=== PATIENT | female | born 1945 | race Caucasian/White ===

== ENCOUNTER 2020-10-08 00:28 | Outpatient (CLI) | payer MEDICARE, SELFPAY ==
[2020-10-08 17:34] LABS: SARS-CoV-2 RNA PCR Negative
== END 2020-10-08 00:29 | disposition home or self-care (01) ==
LOC: ANHCOVIDDT 00:29
PROVIDERS: PCP Internal Medicine; Visit Provider Internal Medicine Gastroenterology
DX: Z01.812 Encounter for preprocedural laboratory examination (principal); Z20.822 Contact with and (suspected) exposure to COVID-19
CPT/HCPCS: C9803; U0003; U0005

== ENCOUNTER 2020-10-11 00:46 | Day surgery (SDC) | payer MEDICARE, SELFPAY ==
[2020-10-04 14:27] VITALS: BMI 31.0
[2020-10-11 07:13] VITALS: BP 129/93; PULSE 88; RESP 20; TEMP 36.8; O2SAT 99; BMI 29.5
[2020-10-11] MEDS: LACTATED RINGERS 1,000 ML 150 ML IV CONT (07:22)
--- NOTE | 2020-10-11 07:45 | WPDGICN ---
Assessment and Plan Assessment and plan (1) Colon polyps: Code(s): K63.5 - Polyp of colon Status: Acute Assessment and Plan: Patient reports having had colon polyps found on previous colonoscopy. Colonoscopy to be performed today and is suggested at 5 year intervals in the future. (2) Encounter for colonoscopy in patient with family history of colon cancer: Code(s): Z12.11 - Encounter for screening for malignant neoplasm of colon; Z80.0 - Family history of malignant neoplasm of digestive organs Status: Acute Assessment and Plan: Patient's sister has had colon cancer. For this reason screening colonoscopy advised now and at 5 year intervals. GI Consult Note Consult date/time: 10/11/20 07:45 HPI: Geovanna Gao is a 74 year old female Presents for screening colonoscopy. Patient states that her current weight appetite bowel movements are normal. She denies abdominal pain. She has had no bleeding. Family history is significant that her sister had colon cancer. Patient reports that she may have had colon polyps on previous colonoscopy. Review of Systems Review of Systems: All systems reviewed & are unremarkable except as noted in HPI and below PMFSH Past Medical History Medical History (Updated 10/11/20 @ 07:47 by Laz Lowe MD) Anxiety Back pain Diabetes Hypertension Neck fracture Surgical History Surgical History (Updated 04/17/20 @ 15:54 by Carola Cruz) Tubal ligation status Family History Family History (Updated 04/17/20 @ 15:55 by Carola Cruz) Mother Diabetes mellitus Hypertension Patient's mother is in good health Sibling Patient's sister is in good health Patient's brother is , Onset Age: 55 Family history of malignant neoplasm of gastrointestinal tract Family history of lung cancer Other Breast cancer Lung cancer Malignant neoplasm of prostate Social History Social History Smoking packs per day: 1 Smoking cigarettes per day: 20.0 Years smoked: 20 Smoking pack-years: 20.00 Smoking status: Former smoker Tobacco type: cigarettes Alcohol intake: never Substance use: never Substance use type: does not use Living arrangements: with family Spiritual care concerns: No Meds Home Medications and Allergies Home Medications Medication Instructions Recorded Confirmed Type hydrocodone 7.5 mg-acetaminophen 1 tablet PO Q4H PRN tablet 09/28/19 10/04/20 History 325 mg tablet lisinopril 20 See Rx Instructions .ROUTE 06/05/20 10/04/20 Rx mg-hydrochlorothiazide 12.5 mg .COMPLEX #180 tablet tablet rosuvastatin 40 mg tablet 40 mg PO DAILY #90 tablet 07/30/20 10/04/20 Rx pantoprazole 20 mg tablet,delayed See Rx Instructions .ROUTE 09/12/20 10/04/20 Rx release .COMPLEX #90 tablet sertraline 100 mg tablet 100 mg PO DAILY #90 tablet 09/12/20 10/04/20 Rx sodium,potassium,mag sulfates See Rx Instructions .ROUTE 10/04/20 Rx [Suprep Bowel Prep Kit] .COMPLEX #1 ml Allergies Allergy/AdvReac Type Severity Reaction Status Date / Time No Known Allergies Allergy Verified 10/11/20 07:11 Vital Signs Vital Signs - 24 hr 10/11/20 07:13 Temperature 98.2 F Pulse Rate 88 Respiratory Rate 20 Blood Pressure 129/93 H Pulse Oximetry 99 Exam Narrative: Exam Narrative: Physical exam reveals patient to be alert. Vital signs are stable. HEENT exam is unremarkable. Lungs are clear to auscultation and percussion. Heart is without murmur or extra sounds. Abdominal exam bowel sounds are present soft nontender with no organomegaly. Digital external rectal exam is normal.
--- NOTE | 2020-10-11 08:08 | WPDANESEPPF ---
Anes - Initial Pre Proc Eval Procedure: Operation Date: 10/11/20 08:30 Proposed Procedures p Screening Colonoscopy - Laz Lowe MD Date/Time: 10/11/20 08:08 Surgeon: Laz Lowe MD Pre Op Diagnosis: neoplasm screening, hx of colon polyp Patient Data Age: 74 Gender: F Height: 5 ft 4 in Weight: 78 kg Last Vital Signs Temp 98.2 F 10/11/20 07:13 Pulse 88 10/11/20 07:13 Resp 20 10/11/20 07:13 BP 129/93 H 10/11/20 07:13 Pulse Ox 99 10/11/20 07:13 Allergies Allergy/AdvReac Type Severity Reaction Status Date / Time No Known Allergies Allergy Verified 10/11/20 07:11 Home Medications Medication Instructions Recorded Confirmed Type hydrocodone 7.5 mg-acetaminophen 1 tablet PO Q4H PRN tablet 09/28/19 10/04/20 History 325 mg tablet lisinopril 20 See Rx Instructions .ROUTE 06/05/20 10/04/20 Rx mg-hydrochlorothiazide 12.5 mg .COMPLEX #180 tablet tablet rosuvastatin 40 mg tablet 40 mg PO DAILY #90 tablet 07/30/20 10/04/20 Rx pantoprazole 20 mg tablet,delayed See Rx Instructions .ROUTE 09/12/20 10/04/20 Rx release .COMPLEX #90 tablet sertraline 100 mg tablet 100 mg PO DAILY #90 tablet 09/12/20 10/04/20 Rx sodium,potassium,mag sulfates See Rx Instructions .ROUTE 10/04/20 Rx [Suprep Bowel Prep Kit] .COMPLEX #1 ml Patient hx anesthesia problems: none Family hx anesthesia problems: none PMFSH Past Medical History Medical History (Updated 10/11/20 @ 07:47 by Laz Lowe MD) Anxiety Back pain Diabetes Hypertension Neck fracture Surgical History Surgical History (Updated 04/17/20 @ 15:54 by Carola Cruz) Tubal ligation status Family History Family History (Updated 04/17/20 @ 15:55 by Carola Cruz) Mother Diabetes mellitus Hypertension Patient's mother is in good health Sibling Patient's sister is in good health Patient's brother is , Onset Age: 55 Family history of malignant neoplasm of gastrointestinal tract Family history of lung cancer Other Breast cancer Lung cancer Malignant neoplasm of prostate Social History Social History Smoking packs per day: 1 Smoking cigarettes per day: 20.0 Years smoked: 20 Smoking pack-years: 20.00 Smoking status: Former smoker Tobacco type: cigarettes Alcohol intake: never Substance use: never Substance use type: does not use Living arrangements: with family Spiritual care concerns: No Anes - Eval Final PreProcedure Day of Procedure 10/11/20 08:08 Patient weight: normal Heart: regular rate and rhythm Lungs: clear to auscultation Airway: Mallampati scale class II Neurological: alert and oriented Last oral intake: >/= 8 hours ASA classification: III Emergent: no Anesthetic plan: proceed Anesthesia type and monitoring: general GIVS and standard monitoring Informed Consent: The patient's anesthetic plan and its attendant risks and benefits were discussed with the patient/family/POA. Questions were solicited and answers provided to the satisfaction of the patient/family/POA.
[2020-10-11 08:38] VITALS: BP 96/61; PULSE 79; RESP 20; O2SAT 96
[2020-10-11 08:48] VITALS: BP 108/63; PULSE 79; RESP 18; O2SAT 99
[2020-10-11 08:58] VITALS: BP 115/76; PULSE 69; RESP 20; O2SAT 100
== END 2020-10-11 09:12 | disposition home or self-care (01) ==
PROVIDERS: PCP Internal Medicine; Visit Provider Internal Medicine Gastroenterology
PROC: 0DJD8ZZ Inspection of Lower Intestinal Tract, Via Natural or Artificial Opening Endoscopic (ICD-10-PCS; CPT 45378; principal; 2020-10-11 08:30)
DX: Z12.11 Encounter for screening for malignant neoplasm of colon (principal); Z86.010 Personal history of colon polyps; Z80.0 Family history of malignant neoplasm of digestive organs; K64.8 Other hemorrhoids; K57.30 Diverticulosis of large intestine without perforation or abscess without bleeding; F41.9 Anxiety disorder, unspecified; E11.9 Type 2 diabetes mellitus without complications; I10 Essential (primary) hypertension; Z87.891 Personal history of nicotine dependence
CPT/HCPCS: G0105; C9803; J2704; J7120; U0003; U0005

== ENCOUNTER 2020-12-31 09:04 | Outpatient (CLI) | payer MEDICARE, SELFPAY | END 2020-12-31 09:05 | disposition home or self-care (01) | LOC: ANHCOVIDVC 09:05 | PROVIDERS: PCP Internal Medicine | DX: Z23 Encounter for immunization (principal) | CPT/HCPCS: 0001A; 91300 ==

== ENCOUNTER 2021-01-21 09:29 | Outpatient (CLI) | payer MEDICARE, SELFPAY | END 2021-01-21 09:30 | disposition home or self-care (01) | LOC: ANHCOVIDVC 09:30 | PROVIDERS: PCP Internal Medicine | DX: Z23 Encounter for immunization (principal) | CPT/HCPCS: 0002A; 91300 ==

== ENCOUNTER 2021-03-21 08:56 | Outpatient (CLI) | payer MEDICARE, SELFPAY ==
--- NOTE | ~2021-03-21 | MM_ITS ---
EXAMINATION: MM screening jean BI w gracie HISTORY: Screening mammogram, family history of breast cancer in her mother. TECHNIQUE: Craniocaudal and mediolateral oblique 3-D tomosynthesis images were obtained and synthetic 2-D images were generated. CAD analysis was submitted and interpreted. COMPARISON: 09/30/2017, 07/26/2015, 05/19/2011 BREAST PARENCHYMAL COMPOSITION: The breasts are almost entirely fatty. FINDINGS: RIGHT BREAST: There is no evidence of suspicious mass, calcification, or architectural distortion to suggest malignancy. There has been no significant interval change. LEFT BREAST: An asymmetry is present in the middle third of the outer breast 6.7 cm from the nipple o n the craniocaudal view. IMPRESSION: 1. Left breast asymmetry. 2. Additional mammographic views and possible breast ultrasound are recommended. BI-RADS Category 0: Incomplete: Needs additional imaging evaluation. Reviewed, dictated and finalized at location A. IMPRESSION: 1. Left breast asymmetry. 2. Additional mammographic views and possible breast ultrasound are recommended . BI-RADS Category 0: Incomplete: Needs additional imaging evaluation.
== END 2021-03-21 08:57 | disposition home or self-care (01) ==
LOC: ANHIMG 08:59
PROVIDERS: PCP Internal Medicine; Visit Provider Nurse Practitioner
DX: Z12.31 Encounter for screening mammogram for malignant neoplasm of breast (principal); R92.8 Other abnormal and inconclusive findings on diagnostic imaging of breast
CPT/HCPCS: 77063; 77067

== ENCOUNTER 2021-04-18 08:25 | Emergency (ER) | payer MEDICARE, SELFPAY ==
[2021-04-18] VITALS (7 sets, daily range): BP systolic 132–155; BP diastolic 73–97; PULSE 74–89; RESP 9–19; TEMP 36.6; O2SAT 94–98
--- NOTE | ~2021-04-18 | CT_ITS ---
EXAMINATION: CT brain wo con INDICATION: Dizziness and generalized headache COMPARISON: 12/22/2014 TECHNIQUE: Standard unenhanced head CT. The dose-length product (DLP) was 529.67 mGy-cm. The mA was a djusted according to patient size. Iterative reconstruction technique was employed. FINDINGS: There is no acute intraparenchymal hemorrhage. No evidence of mass lesion. No evidence of a cute infarction. 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 There is mild periventr icular and subcortical hypodensity probably related to small vessel ischemic disease. There is mild p rominence of the sulci and ventricles related to cerebral atrophy. Intracranial calcified cerebral at herosclerosis is noted. There are no extra-axial collections. There is no mass effect or midline shif t. Changes in the globes are likely from ocular lens surgery. The visualized sinuses and mastoid air cells are well aerated. IMPRESSION: 1. No acute intracranial abnormality. 2. Age related findings. Reviewed, dictated and finalized at location B.
--- NOTE | 2021-04-18 09:08 | ECG_ITS ---
Measurements Intervals [place] Rate: 76 P: 60 CA: 139 QRS: 25 QRSD: 89 T: 49 QT: 377 QTc: 425 Interpretive Statements SINUS RHYTHM BASELINE ARTIFACT- II, III, AVF, V3-V6 NORMAL ECG Electronically Signed On 04-18-2021 9:41:06 CDT by Alexander Juares D.O.
--- NOTE | 2021-04-18 09:34 | ED.GENADULT ---
HPI - General Adult General Chief complaint: Dizziness Stated complaint: weakness, N/V Time Seen by Provider: 04/18/21 09:20 Source: patient Mode of arrival: ambulatory Limitations: no limitations History of Present Illness HPI narrative: Patient called her daughter this morning at 815 complaining of nausea and headache. She tells me her headache started last evening has gone through the night for which she took nothing. She tried to take her morning blood pressure medicines but vomited. And she has not taken her chronic pain medicine. She denies any fever, visual changes. States the headache is behind her eyes and on her temples. Related Data Home Medications Medication Instructions Recorded Confirmed amlodipine 04/18/21 04/18/21 lisinopril-hydrochlorothiazide tablet 04/18/21 Allergies Allergy/AdvReac Type Severity Reaction Status Date / Time No Known Allergies Allergy Verified 03/12/21 07:22 Review of Systems Review of Systems: All systems reviewed & are unremarkable except as noted in HPI and below PMFSH Past Medical History Medical History Anxiety Back pain Diabetes Hypertension Neck fracture Surgical History Surgical History Tubal ligation status Family History Family History Mother Diabetes mellitus Hypertension Patient's mother is in good health Sibling Patient's sister is in good health Patient's brother is , Onset Age: 55 Family history of malignant neoplasm of gastrointestinal tract Family history of lung cancer Other Breast cancer Lung cancer Malignant neoplasm of prostate Social History Social History Smoking packs per day: 1 Smoking cigarettes per day: 20.0 Years smoked: 20 Smoking pack-years: 20.00 Smoking status: Former smoker Tobacco type: cigarettes Second hand tobacco smoke exposure: Yes Alcohol intake: current Alcohol use details: glass of wine every 2 weeks. Substance use: never Substance use type: does not use Spiritual care concerns: No Exam Const: General: alert Orientation/consciousness: patient oriented x3 Other: appears in pain. HENMT: Head: normal to inspection Eyes: Conjunctivae: conjunctivae normal Pupils: Equal, round and reactive pupils present EOM: EOMs intact bilaterally Direct Ophthalmoscopy: photophobia Neck: Neck: no lymphadenopathy Resp: Effort & Inspection: normal respiratory effort Auscultation: clear to auscultation bilaterally Cardio: Rate: regular rate Rhythm: regular rhythm GI: GI Palp: Yes Soft to palpation Auscultation: normal bowel sounds : General: Yes no CVA tenderness Skin: General skin exam: normal color Neuro: General: patient oriented x3, moves all extremities and no focal motor deficits Extrem: General: normal to inspection and no clubbing, cyanosis or edema Course Course Emergency Course: IVF about 30%complete, pt states her headache may be slightly better, but still about an 8. Patient was able to drink some white soda. But is complaining that her headache is still severe. Her daughter is complaining as well that I have not been able to care her mother's headache. She has had Toradol and Vicodin. Will treat with sumatriptan and additional saline bolus. Patient is much better after her subcu dose of sumatriptan and is ready to go home. Will prescribe for home Vital Signs Vital signs: Vital Signs Temperature 36.6 C 04/18/21 08:30 Pulse Rate 89 04/18/21 08:30 Respiratory Rate 16 04/18/21 08:30 Blood Pressure 155/97 H 04/18/21 08:30 Pulse Oximetry 98 04/18/21 08:30 Temperature 36.6 C 04/18/21 08:30 Pulse Rate 74 04/18/21 11:01 Respiratory Rate 16 04/18/21 11:01 Blood Pressure 153/97 H 04/18/21 11:01 Pulse
[2021-04-18] MEDS: ONDANSETRON INJ 4 MG/2 ML VIAL (10:16)
[2021-04-18] MEDS: KETOROLAC 30 MG/ML VIAL (*BKC) IV PUSH (10:17)
[2021-04-18] MEDS: SODIUM CHLORIDE 0.9% IV 1,000 ML 999 ML IV CONT ×2 (10:18→13:51)
[2021-04-18 10:44] LABS: Basophils Absolute Auto 0.1 K/mm3 (0.0-0.1); Basophils Percent Auto 0.5 % (0.2-1.2); Eosinophils Absolute Auto 0.2 K/mm3 (0-0.3); Eosinophils Percent Auto 1.7 % (0-4.4); Hematocrit 46.8 % (37.0-47.0); Hemoglobin 14.8 g/dL (12.0-15.0); Immature Granulocyte Absolute 0.03 K/mm3 (0.00-0.031); Immature Granulocyte Percent A 0.2 % (0-0.5); Lymphocytes Absolute Auto 2.44 K/mm3 (0.9-3.2); Lymphocytes Percent Auto 20.3 % (18.3-44.2); Mean Corpuscular HGB Conc 31.6 g/dl (32-36); Mean Corpuscular Hemoglobin 31.5 pg (26-34); Mean Corpuscular Volume 99.6 fl (80-100); Mean Platelet Volume 11.8 fl (7.4-10.4); Monocytes Absolute Auto 0.8 K/mm3 (0.1-0.6); Monocytes Percent Auto 6.2 % (2.6-8.5); Neutrophils Absolute Auto 8.5 K/mm3 (1.3-6.7); Neutrophils Percent Auto 71.1 % (45.5-73.1); Platelet Count Result 248 k/mm3 (150-375); Red Cell Distribution Width 12.9 % (11.5-14.5)
[2021-04-18 10:51] LABS: Alanine Aminotransferase 20 U/L (4-35); Albumin Level 4.8 g/dL (3.5-5.1); Alkaline Phosphatase 80 U/L (38-126); Anion Gap 7 mmol/L (8-16); Aspartate Amino Transferase 35 U/L (14-36); Bilirubin,Total 0.5 mg/dL (0.2-1.3); Blood Urea Nitrogen 20 mg/dL (7-17); Calcium 11.2 mg/dL (8.4-10.2); Carbon Dioxide 32 mmol/L (22-30); Chloride 102 mmol/L (98-107); Estimated CRCL calculation 46 ml/min; Estimated Glomerular Filt Rate > 60; Glucose 125 mg/dL (65-110); Lipase 119 U/L (23-300); Potassium 3.5 mmol/L (3.4-5.0); Sodium 141 mmol/L (137-145)
[2021-04-18] MEDS: HYDROcodone/acetaminophen (*CRX) 7.5-325 MG TABLET 1 TAB PO (11:36)
[2021-04-18 12:34] LABS: Add Urine Microscopic? YES; Appearance Urine Cloudy (Clear); Bilirubin Urine Negative (Negative); Blood Urine 1+ (Negative); Color Urine Yellow (Yellow); Glucose Urine UA Negative (Negative); Ketones Urine Negative (Negative); Leukocyte Esterase Ur Negative LEU/UL (Negative); Mucus Urine Rare /lpf; Nitrate Urine Negative (Negative); Protein Urine Negative (Negative); RBC Urine 0-2 /hpf (0-2); Specific Grav Ur 1.015 (1.001-1.035); Urobilinogen Urine Negative mg/dL (<2.0); WBC Urine 0-3 /hpf
[2021-04-18] MEDS: SUMAtriptan SUCCINATE 6 MG/0.5 ML VIAL SUB-Q (13:51)
== END 2021-04-18 14:45 | disposition home or self-care (01) ==
PROVIDERS: Physician Assistant; Emergency Provider Emergency Medicine; PCP Internal Medicine
DX: G43.009 Migraine without aura, not intractable, without status migrainosus (principal); I10 Essential (primary) hypertension; E11.9 Type 2 diabetes mellitus without complications; Z87.891 Personal history of nicotine dependence
CPT/HCPCS: 36415; 70450; 80053; 81001; 83690; 85025; 93005; 96361; 96372; 96374; 96375; 99284; A9270; J1885; J2405; J3030; J7030

== ENCOUNTER 2021-04-19 08:52 | Outpatient (CLI) | payer MEDICARE, SELFPAY ==
--- NOTE | ~2021-04-19 | MMUS_ITS ---
EXAMINATION: MM diagnostic jean LT w gracie, US breast LT limited HISTORY: Follow-up left breast asymmetry TECHNIQUE: Additional 3-D tomosynthesis images of the left breast were performed and synthetic 2-D im ages were generated. CAD analysis was submitted and interpreted. High resolution left breast ultrasou nd was performed. COMPARISON: Comparison to multiple prior studies sequentially, with oldest reviewed study dated 05/19. BREAST PARENCHYMAL COMPOSITION: Breast composed of scattered areas of fibroglandular density. FINDINGS: MAMMOGRAPHIC FINDINGS: There are no suspicious masses, calcifications or architectural distortion in the left breast to sugg est malignancy. ULTRASOUND: Limited left breast ultrasound: Normal heterogeneous echotexture without focal mass. IMPRESSION: 1. No evidence for malignancy in the left breast. 2. Routine yearly screening mammogram and regular clinical breast examination are recommended. BI-RADS Category 1: Negative Reviewed, dictated and finalized at location A. IMPRESSION: 1. No evidence for malignancy in the left breast. 2. Routine yearly screening mammogram and regular clinical breast examination a re recommended. BI-RADS Category 1: Negative
== END 2021-04-19 08:53 | disposition home or self-care (01) ==
LOC: ANHIMG 08:52
PROVIDERS: PCP Internal Medicine; Visit Provider Nurse Practitioner
DX: R92.8 Other abnormal and inconclusive findings on diagnostic imaging of breast (principal)
CPT/HCPCS: 76642; 77061; 77065; G0279

== ENCOUNTER 2021-05-20 07:26 | Outpatient (CLI) | payer MEDICARE, SELFPAY ==
--- NOTE | ~2021-05-20 | DEXA_ITS ---
Bone Density Report Name: Geovanna Gao Age: 75 Sex: Female Ethnicity: White Date of : 1945 Indication: osteopenia; height loss; prior fracture; postmenopausal Referring Provider: Ellen Holcomb Study: Bone densitometry was performed. Exam Date: May 20, 2021 Accession number: [id number] Bone Density: Region BMD T-score Z-score Classification AP Spine (L1-L4) 0.820 -2.1 0.4 Osteopenia Femoral Neck (Left) 0.703 -1.3 0.8 Osteopenia Total Hip (Left) 0.835 -0.9 1.0 Normal Total Hip Bilateral Avg 0.828 -0.9 0.9 Normal Femoral Neck (Right) 0.850 0.0 2.2 Normal Total Hip (Right) 0.820 -1.0 0.9 Normal World Health Organization criteria for BMD impression classify patients as: Normal (T-score at or above -1.0), Osteopenia (T-score between -1.0 and -2.5), or Osteoporosis (T-score at or below -2.5). 10-year Fracture Risk(1): Major Osteoporotic Fracture 17% Hip Fracture 3.0% Reported Risk Factors: [place] (), Neck BMD=0.703, BMI=27.0, previous fracture (1) FRAX(R) Version 3.08. Fracture probability calculated for an untreated patient. Fracture probability may be lower if the patient has received treatment. Previous Exams: Region Exam Age BMD T-score BMD Change BMD Change Date g/cm2 vs Baseline vs Previous AP Spine(L1-L4) 05/20/2021 75 0.820 -2.1 -0.020(-2.4%)# -0.031(-3.7%)# 05/19/2011 65 0.851 -1.8 0.011(1.3%) 0.011(1.3%) 03/23/2007 61 0.840 -1.9 Total Hip(Left) 05/20/2021 75 0.835 -0.9 -0.090(-9.7%)# -0.072(-7.9%)# 05/19/2011 65 0.907 -0.3 -0.018(-2.0%) -0.018(-2.0%) 03/23/2007 61 0.925 -0.1 Total Hip(Right) 05/20/2021 75 0.820 -1.0 -0.057(-6.4%)# -0.083(-9.2%)# 05/19/2011 65 0.903 -0.3 0.026(3.0%) 0.026(3.0%) 03/23/2007 61 0.877 -0.5 *Denotes significance at 95% confidence level, LSC for AP Spine = 0.022 g/cm2, LSC for Total Hip = 0.027 g/cm2 Clinical Information Provided by Patient: Has had a low trauma fracture Has used the following medications: Vitamin D, Calcium Patient maximum height was 67 Menopause Age: 44 Drinks caffeinated beverages Onset of menses at age 11 Number of children 3 Impression: The patient has low bone mass, based on the Total Spine T-score. The patient has an estimated ten-year risk of hip fracture of 3% and an estimated ten-year risk of major fracture of 17%, based on the WHO FRAX algorithm. The patient has risk factors, including: prev
== END 2021-05-20 07:27 | disposition home or self-care (01) ==
LOC: ANHIMG 07:28
PROVIDERS: PCP Internal Medicine; Visit Provider Internal Medicine Endocrinology, Diabetes & Metabolism
DX: M85.851 Other specified disorders of bone density and structure, right thigh (principal); E21.3 Hyperparathyroidism, unspecified; E55.9 Vitamin D deficiency, unspecified; I10 Essential (primary) hypertension; M85.852 Other specified disorders of bone density and structure, left thigh
CPT/HCPCS: 77080

== ENCOUNTER 2022-05-19 12:37 | Outpatient (CLI) | payer MEDICARE, SELFPAY ==
--- NOTE | 2022-05-22 12:49 | WPDHOLTEREM ---
Holter/Event Monitor Holter/Event Monitor Date of procedure: 05/19/22 Holter/Event Procedure: 48 Hr Holter Monitor Indications: Palpitations Conclusion: 1. 48 hour holter monitor on 05/19/22. 2. Predominant rhythm is sinus rhythm. HR range 52-115 bpm; average HR 79 bpm. 3. There are 242 premature supraventricular complexes and 25 supraventricular couplets. There are 7 episodes of atrial tachycardia, fastest at 185 bpm and longest lasted 14 beats. 4. There are 672 premature ventricular complexes and 2 ventricular couplets. No ventricular tachycardia. 5. No sinoatrial or atrioventricular blocks. No significant pauses greater than 2 seconds. 6. Patient reports dizziness which demonstrate sinus rhythm, HR range 88-95 bpm with a ventricular couplet.
== END 2022-05-19 12:38 | disposition home or self-care (01) ==
PROVIDERS: PCP Internal Medicine; Visit Provider Internal Medicine
DX: R00.2 Palpitations (principal); R94.39 Abnormal result of other cardiovascular function study
CPT/HCPCS: 93225; 93226

== ENCOUNTER 2022-06-02 07:18 | Outpatient (CLI) | payer MEDICARE, SELFPAY ==
--- NOTE | ~2022-06-02 | MM_ITS ---
EXAMINATION: MM screening jean BI w gracie HISTORY: Screening mammogram TECHNIQUE: Craniocaudal and mediolateral oblique 3-D tomosynthesis images were obtained and synthetic 2-D images were generated. CAD analysis was submitted and interpreted. COMPARISON: 04/19/2021 diagnostic left mammogram and limited left breast ultrasound 03/21/2021, 09/26/2017 bilateral screening mammogram examinations BREAST PARENCHYMAL COMPOSITION: The breasts are almost entirely fatty. FINDINGS: There is no evidence of suspicious mass, calcification, or architectural distortion to sugg est malignancy in either breast. There has been no suspicious interval change. IMPRESSION: 1. No mammographic evidence of malignancy. 2. Recommend routine screening mammography in one year. BI-RADS Category 1: Negative Reviewed, dictated and finalized at location A.
== END 2022-06-02 07:19 | disposition home or self-care (01) ==
LOC: ANHIMG 07:20
PROVIDERS: PCP Internal Medicine; Visit Provider Internal Medicine
DX: Z12.31 Encounter for screening mammogram for malignant neoplasm of breast (principal)
CPT/HCPCS: 77063; 77067

== ENCOUNTER 2022-06-26 07:00 | Outpatient (NON) | payer MEDICARE, SELFPAY | END 2022-06-26 07:01 | disposition home or self-care (01) | PROVIDERS: PCP Internal Medicine; Visit Provider Nurse Practitioner | DX: C50.812 Malignant neoplasm of overlapping sites of left female breast (principal) | CPT/HCPCS: 88305 ==

== ENCOUNTER 2022-07-28 14:02 | Outpatient (NON) | payer MEDICARE, SELFPAY | END 2022-07-28 14:03 | disposition home or self-care (01) | LOC: ANHLAB 14:02 | PROVIDERS: PCP Internal Medicine; Visit Provider Nurse Practitioner | DX: C44.511 Basal cell carcinoma of skin of breast (principal) | CPT/HCPCS: 88305; 88331 ==

== ENCOUNTER 2022-08-13 10:13 | Outpatient (CLI) | payer MEDICARE, SELFPAY ==
--- NOTE | ~2022-08-13 | DEXA_ITS ---
Bone Density Report Name: HAVEN CHAND Age: 76 Sex: Female Ethnicity: White Date of : 1945 Indication: postmenopausal; screening for osteoporosis; height loss; Referring Provider: ASHANTI LOCKE Study: Bone densitometry was performed. Exam Date: August 13, 2022 Accession number: [id number] Bone Density: Region BMD T-score Z-score Classification AP Spine(L1-L4) 0.883 -1.5 1.1 Osteopenia Femoral Neck (Left) 0.767 -0.7 1.5 Normal Total Hip (Left) 0.864 -0.6 1.3 Normal Femoral Neck (Right) 0.825 -0.2 2.0 Normal Total Hip (Right) 0.877 -0.5 1.4 Normal Total Hip Mean 0.871 -0.6 1.4 Normal World Health Organization criteria for BMD impression classify patients as: Normal (T-score at or above -1.0), Osteopenia (T-score between -1.0 and -2.5), or Osteoporosis (T-score at or below -2.5). 10-year Fracture Risk: FRAX not reported because: Treated for osteoporosis Clinical Information Provided by Patient: Is being treated for osteoporosis Has used the following medications: Fosamax (i.e. alendronate), Vitamin D Patient maximum height was 67.5 Menopause Age: 44 Drinks caffeinated beverages Onset of menses at age 10 Number of children 3 Impression: The patient has low bone mass, based on the Total Spine T-score. Discussion: It is important to ask patients whether they are taking their medications and to encourage continued and appropriate compliance with their osteoporosis therapies to reduce fracture risk. It is also important to review their risk factors and encourage appropriate calcium and vitamin D intakes, exercise, fall prevention and other lifestyle measures. Follow-Up: Consider a repeat BMD and Vertebral Fracture Assessment (VFA) exam in 2 years or sooner if medically necessary, to reassess this patient's status. Reported by: [facility] on 08/13/2022 10:30:00 AM. Reviewed, dictated and finalized at location AJeni CANTRELL
== END 2022-08-13 10:14 | disposition home or self-care (01) ==
PROVIDERS: PCP Internal Medicine; Visit Provider Internal Medicine Endocrinology, Diabetes & Metabolism
DX: E21.3 Hyperparathyroidism, unspecified (principal); E55.9 Vitamin D deficiency, unspecified; M85.80 Other specified disorders of bone density and structure, unspecified site; M85.88 Other specified disorders of bone density and structure, other site
CPT/HCPCS: 77080

== ENCOUNTER 2024-01-22 09:14 | Outpatient (CLI) | payer MEDICARE, SELFPAY ==
--- NOTE | ~2024-01-22 | DEXA_ITS ---
Bone Density Report Name: HAVEN CHAND Age: 78 Sex: Female Ethnicity: White Date of : 1945 Indication: osteopenia; monitoring treatment; height loss; postmenopausal Referring Provider: ASHANTI LOCKE Study: Bone densitometry was performed. Exam Date: January 22, 2024 Accession number: [id number] Bone Density: Region BMD T-score Z-score Classification AP Spine(L1-L4) 0.873 -1.6 1.1 Osteopenia Femoral Neck (Left) 0.738 -1.0 1.3 Normal Total Hip (Left) 0.918 -0.2 1.8 Normal Femoral Neck (Right) 0.952 0.9 3.2 Normal Total Hip (Right) 0.929 -0.1 1.9 Normal Total Hip Mean 0.923 -0.2 1.9 Normal World Health Organization criteria for BMD impression classify patients as: Normal (T-score at or above -1.0), Osteopenia (T-score between -1.0 and -2.5), or Osteoporosis (T-score at or below -2.5). 10-year Fracture Risk: FRAX not reported because: Treated for osteoporosis Previous Exams: Region Exam Age BMD T-score BMD Change BMD Change Date g/cm2 vs Baseline vs Previous AP Spine (L1-L4) 01/22/2024 78 0.873 -1.6 0.053 (6.5%)* -0.010 (-1.2%) 08/13/2022 76 0.883 -1.5 0.064 (7.8%)* 0.064 (7.8%)* 05/20/2021 75 0.820 -2.1 Total Hip(Left) 01/22/2024 78 0.918 -0.2 0.082 (9.8%)* 0.054 (6.2%)* 08/13/2022 76 0.864 -0.6 0.029 (3.4%)* 0.029 (3.4%)* 05/20/2021 75 0.835 -0.9 Total Hip(Right) 01/22/2024 78 0.929 -0.1 0.109 (13.3%)* 0.052 (5.9%)* 08/13/2022 76 0.877 -0.5 0.057 (7.0%)* 0.057 (7.0%)* 05/20/2021 75 0.820 -1.0 *Denotes significance at 95% confidence level, LSC for AP Spine = 0.022 g/cm2, LSC for Total Hip = 0.027 g/cm2 Clinical Information Provided by Patient: Is being treated for osteoporosis Has used the following medications: Fosamax (i.e. alendronate), Vitamin D Patient maximum height was 67.5 Menopause Age: 44 Drinks caffeinated beverages Onset of menses at age 10 Number of children 3 Impression: The patient has low bone mass, based on the Total Spine T-score. No significant bone loss was observed. Discussion: PATIENT UNDER TREATMENT WITH NO SIGNIFICANT BMD LOSS SINCE LAST EXAM. In an untreated patient, BMD typically declines with age. A lack of decline or gain is usually a sign that treatment is efficacious and fracture risk is reduced. It is important to ask patients whether they are taking their medications and to encourage continued and appropriate compliance with their
== END 2024-01-22 09:15 | disposition home or self-care (01) ==
PROVIDERS: PCP Family Medicine; Visit Provider Internal Medicine Endocrinology, Diabetes & Metabolism
DX: Z78.0 Asymptomatic menopausal state (principal); M85.88 Other specified disorders of bone density and structure, other site
CPT/HCPCS: 77080

== ENCOUNTER 2024-04-21 10:51 | Outpatient (CLI) | payer MEDICARE, SELFPAY ==
--- NOTE | ~2024-04-21 | US_ITS ---
EXAMINATION: US thyroid DATE: 04/21/2024 11:24 INDICATION: Nontoxic single thyroid nodule TECHNIQUE: Multiple ultrasound images of the thyroid were obtained. COMPARISON: None. FINDINGS: The right thyroid lobe measures 4.3 x 1.1 x 1.6 cm. The left thyroid lobe measures 1.7 x 1.6 x 1.7 c m. Solid wider than tall isoechoic nodules with smooth margins and without extending foci (TI-RADS 3 , mildly suspicious , FNA if >=2.5 cm, annual followup is >=1.5 cm) measuring 1.1 cm in the inferior right thyroid lobe and 1.0 cm the mid right thyroid lobe. There is a solid wider than tall hypoechoic nodule with lobular margins and internal coarse shadowing calcifications at the inferior left thyroi d lobe (TI-RADS 5, highly suspicious , FNA if >=1.0 cm, annual followup is >0.5 cm). IMPRESSION: 1. Multinodular goiter. Recommend ultrasound-guided biopsy of the largest and highest grade 1.7 cm TI RADS 5 left thyroid nodule. Reviewed, dictated and finalized at location A. IMPRESSION: 1. Multinodular goiter. Recommend ultrasound-guided biopsy of the largest and h ighest grade 1.7 cm TI RADS 5 left thyroid nodule.
== END 2024-04-21 10:52 | disposition home or self-care (01) ==
PROVIDERS: PCP Family Medicine; Visit Provider Internal Medicine Endocrinology, Diabetes & Metabolism
DX: E04.2 Nontoxic multinodular goiter (principal)
CPT/HCPCS: 76536

== ENCOUNTER 2024-06-13 12:34 | Outpatient (CLI) | payer MEDICARE, SELFPAY ==
--- NOTE | ~2024-06-13 | US_ITS ---
EXAMINATION: US FNA w image guidance DATE: 06/13/2024 13:31 INDICATION: Left thyroid nodule. TECHNIQUE: The procedure and its benefits and risks were discussed with the patient. Risks specifically discusse d included bleeding. The patient verbalized understanding of the risks and agreed to proceed. The nec k was prepped and draped in the usual sterile manner. 1% lidocaine was used for local anesthesia. 6 passes were made with a 25G needle into the lesion under ultrasound guidance. There were no immedia te complications. FINDINGS: Grayscale ultrasound images demonstrate needles advanced into a 1.7 cm nodule in left thyroid lobe fo r biopsy. IMPRESSION: 1. Ultrasound-guided fine needle aspiration of a left thyroid nodule. Reviewed, dictated and finalized at location A.
== END 2024-06-13 12:35 | disposition home or self-care (01) ==
LOC: ANHIMG 12:37
PROVIDERS: PCP Nurse Practitioner Family; Visit Provider Internal Medicine Endocrinology, Diabetes & Metabolism
DX: E04.1 Nontoxic single thyroid nodule (principal)
CPT/HCPCS: 10005; 88172; 88173; 88305

== ENCOUNTER 2024-09-03 09:10 | Outpatient (CLI) | payer MEDICARE, SELFPAY ==
--- NOTE | ~2024-09-03 | MM_ITS ---
EXAMINATION: MM screening jean BI w gracie HISTORY: Screening mammogram, family history of breast cancer in her mother. TECHNIQUE: Craniocaudal and mediolateral oblique 3-D tomosynthesis images were obtained and synthetic 2-D images were generated. CAD analysis was submitted and interpreted. COMPARISON: 06/02/2022, 04/19/2021, 03/21/2021 BREAST PARENCHYMAL COMPOSITION:Not Dense. The breasts are almost entirely fatty FINDINGS: No suspicious mass, calcification, or architectural distortion are identified in either aldo ast to suggest malignancy. There has been no suspicious interval change. IMPRESSION: No mammographic evidence of malignancy. Recommend routine screening mammography in one year. BI-RADS Category 1: Negative Reviewed, dictated and finalized at location . GRADER
== END 2024-09-03 09:11 | disposition home or self-care (01) ==
LOC: ANHIMG 09:11
PROVIDERS: PCP Nurse Practitioner Family; Visit Provider Nurse Practitioner Family
DX: Z12.31 Encounter for screening mammogram for malignant neoplasm of breast (principal)
CPT/HCPCS: 77063; 77067

== ENCOUNTER 2025-05-30 11:03 | Outpatient (CLI) | payer MEDICARE, SELFPAY ==
--- NOTE | ~2025-05-30 | XR_ITS ---
EXAMINATION: XR shoulder LT min 2V, 05/30/2025 11:15 CDT HISTORY: M25.511 - Pain in right shoulder X 6+YRS NKI COMPARISON: No comparisons available. Findings: No acute fracture or malalignment. Moderate degenerative changes Soft tissues unremarkable. Impression: No acute fracture or malalignment. Reviewed, dictated and finalized at location A. Impression: No acute fracture or malalignment.
--- NOTE | ~2025-05-30 | XR_ITS ---
EXAMINATION: XR shoulder RT min 2V, 05/30/2025 11:15 CDT HISTORY: M25.511 - Pain in right shoulderX 6+ YRS, NKI COMPARISON: No comparisons available. Findings: No acute fracture or malalignment. Severe degenerative changes Soft tissues unremarkable. Impression: No acute fracture or malalignment. Reviewed, dictated and finalized at location A. Impression: No acute fracture or malalignment.
--- OUTSIDE RECORDS SUMMARY | 2025-05-30 11:50 | XMS_ITS | Encounter Summary ---
Author Organization [facility] Address [address] [place] [address] Care Team Providers Care Websphere Administrator Name Role Phone Vipul Weber DO Primary Care Provider Encounter Details Date Type Department Care Team (Late st Contact Info) Description 02/02/2025 Lab Requisition [facility] - DermPath Lab [address] [facility], [place] [phone] Paige Long DO [address] [facility] 3 [place] [address] Social History Tobacco Use Types Packs/Day Years Used Date Smoking Tobacco: Never Assessed Comments Unknown Sex and Gender Information Value Date Recorded Sex Assigned at Not on file Legal Sex 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 Gender Identity Not on file Sexual Orientation Not on file documented as of this encounter Plan of Treatment Not on file documented as of this encounter Procedures Procedure Name Priority Date/Time Associated Diagnosis Comments DERMATOPATHOLOGY Routine 02/02/2025 9:04 AM CDT documented in this encounter Results * DERMATOPATHOLOGY (02/02/2025 9:04 AM CDT) Case Report Dermatopathology Report Case: [id number] Authorizing Provider: Paige Long DO Collected: 02/02/2025 09:04 AM Ordering Location: [facility] - Received: 02/03/2025 07:10 AM DermPath Lab Pathologist: Keira Freedman MD Specimen: Skin, left forearm 1:18 PM CDT DERMATOPATHOLOGY LABORATORY Final Diagnosis Specimen A. 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 The specimen consists of a shave biopsy measuring 10x8x1 mm. Jar 0. 1:18 PM CDT DERMATOPATHOLOGY LABORATORY Microscopic Description Specimen A. SKIN, left forearm: The epidermis shows parakeratosis, full thickness disorderly maturation of keratinocytes, mitoses at different levels, and dyskeratotic cells. 1:18 PM CDT DERMATOPATHOLOGY LABORATORY Disclaimer An external and internal positive and negative controls are appropriate for the histochemical, immunohistochemical and immunofluorescence stain(s) in this case (if any), except where stated explicitly. The performance characteristics of the stain(s) cited in this report were developed and its performance characteristic determined by the Dermatopathology Laboratory at [facility], directed by Dr. Yeimi Gr. These tests need not be, and therefore are not, approved by the [place] Food and Drug Administration. The tests are used for clinical purposes. Billing Codes Specimen Charges Stain Charges 50655 1 1:18 PM CDT DERMATOPATHOLOGY LABORATORY Embedded Images 1:18 PM CDT DERMATOPATHOLOGY LABORATORY Pathology/Cytolo gy TISSUE SPECIMEN FROM SKIN / Unknown 02/02/2025 9:04 AM CDT 02/03/2025 7:10 AM CDT us Paige Long DO LAB - PATHOLOGY/CYTOLOGY ORDERABLES Final Result DERMATOPATHOLOGY LABORATORY [facility] - Department of Dermatology [address], [address] [phone] documented in this encounter Visit Diagnoses Not on filedocumented in this encounter Care Teams Websphere Administrator Relationship Specialty Start Date End Date Vipul Weber DO [address] [place] [address] PCP - General 07/11/22 documented as of this encounter
--- OUTSIDE RECORDS SUMMARY | 2025-05-30 11:50 | XMS_ITS | Clinical Summary ---
Author Organization [facility] [address] Address [address] [place] [address] Care Team Providers Care Pie Bottomer Name Role Phone Thomas Abbott MD Primary Care Provider [phone] Allergies No known active allergies Medications lisinopril-hydro CHLOROthiazide (PRINZIDE,ZESTOR ETIC) 20-12.5 mg per tabletIndication s:hypertension Take 1 tablet by mouth 2 (two) times a day. 09/29/2017 Active rosuvastatin (CRESTOR) 40 mg tablet Take 1 tablet by mouth daily. 10/08/2017 Active mirtazapine (REMERON) 15 mg tablet Take 1 tablet by mouth daily. 10/08/2017 Active escitalopram (LEXAPRO) 20 mg tablet Take 1 tablet by mouth daily. 09/29/2017 Active HYDROcodone-acet aminophen (NORCO) 7.5-325 mg per tabletIndication s:Pain 0 09/23/2017 Active calcium carbonate-vitami n D2 (OSCAL) 250 (625)-125 mg-unit per tablet Take 1 tablet by mouth daily. Active ezetimibe (ZETIA) 10 mg tablet 1 tablet daily. 04/15/2018 Active Active Problems Problem Noted Date Diagnosed Date Vasovagal near syncope 10/20/2017 Medical History Medical History Date Comments Hypertension Syncope Hyperlipidemia Depression Cataract Family History Medical History Relation Name Comments Cancer Brother Cancer Mother Diabetes Mother Hyperlipidemia Mother Hypertension Mother Cancer Sister Relation Name Status Comments Brother Mother Sister Social History Tobacco Use Types Packs/Day Years Used Date Smoking Tobacco: Former Cigarettes 0.5 20 1 2 - 2011 Smokeless Tobacco: Never Alcohol Use Standard Drinks/Week Comments No 0 (1 standard drink = 0.6 oz pur e alcohol) Comments Unknown Sex and Gender Information Value Date Recorded Sex Assigned at Not on file 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 Gender Identity Not on file Sexual Orientation Not on file Obstetrics History Last Filed Vital Signs Vital Sign Reading Time Taken Comments Blood Pressure 90/60 07/01/2018 2:44 PM CDT Pulse 85 07/01/2018 2:44 PM CDT Temperature - - Respiratory Rate - - Oxygen Saturation 96% 07/01/2018 2:44 PM CDT Inhaled Oxygen Concentration - - Weight 81.2 kg (179 lb) 07/01/2018 2:44 PM CDT Height 162.6 cm (5' 4) 07/01/2018 2:44 PM CDT Body Mass Index 30.73 07/01/2018 2:44 PM CDT Plan of Treatment Not on file Insurance [facility] CON Care Teams Pie Bottomer Relationship Specialty Start Date End Date Thomas Abbott MD [address] [place] [address] PCP - General Internal Medicine 10/20/17
--- OUTSIDE RECORDS SUMMARY | 2025-05-30 11:50 | XMS_ITS | Encounter Summary ---
Author Organization [facility] Address [address] [facility] [place] [address] Care Team Providers Care Tanner Rotary Drum Continuous Process Name Role Phone Vipul Weber DO Primary Care Provider [phone] Encounter Details Date Type Department Care Team (Late st Contact Info) Description 10/03/2024 Lab Requisition [facility] - DermPath Lab [address] [facility], [place] [phone] Paige Long DO [address] [facility] 3 [place] [address] Social History Tobacco Use Types Packs/Day Years Used Date Smoking Tobacco: Never Assessed Comments Unknown Sex and Gender Information Value Date Recorded Sex Assigned at Not on file 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 Gender Identity Not on file Sexual Orientation Not on file documented as of this encounter Plan of Treatment Not on file documented as of this encounter Procedures Procedure Name Priority Date/Time Associated Diagnosis Comments DERMATOPATHOLOGY Routine 10/03/2024 8:03 AM FOOD TECHNOLOGY TEACHER documented in this encounter Results * DERMATOPATHOLOGY (10/03/2024 8:03 AM FOOD TECHNOLOGY TEACHER) Case Report Dermatopathology Report Case: [id number] Authorizing Provider: Paige oLng DO Collected: 10/03/2024 08:03 AM Ordering Location: [facility] - Received: 10/03/2024 01:51 PM DermPath Lab Pathologist: Lavonne Riggs MD Specimen: Skin, right inner thigh 4:42 PM FOOD TECHNOLOGY TEACHER DERMATOPATHOLOGY LABORATORY Final Diagnosis Specimen A. SKIN, right inner thigh: SQUAMOUS CELL CARCINOMA IN SITU (JERONIMO'S DISEASE) (D04.71) 4:42 PM [facility] DERMATOPATHOLOGY LABORATORY at [address] [facility] Clinical History R/O NMSC 4:42 PM [facility] DERMATOPATHOLOGY LABORATORY Gross Description Specimen A: Received is one formalin filled container labeled with the patient's name and designated right inner thigh. The specimen consists of a shave biopsy measuring 13x9x1 mm. Jar 0. 4:42 PM [facility] DERMATOPATHOLOGY LABORATORY Microscopic Description Specimen A. SKIN, right inner thigh: The epidermis shows parakeratosis, full thickness disorderly maturation of keratinocytes, mitoses at different levels, and dyskeratotic cells. 4:42 PM [facility] DERMATOPATHOLOGY LABORATORY Disclaimer An external and internal positive and negative controls are appropriate for the histochemical, immunohistochemical and immunofluorescence stain(s) in this case (if any), except where stated explicitly. The performance characteristics of the stain(s) cited in this report were developed and its performance characteristic determined by the Dermatopathology Laboratory at [facility], directed by Dr. Yeimi Gr. These tests need not be, and therefore are not, approved by the [place] Food and Drug Administration. The tests are used for clinical purposes. Billing Codes Specimen Charges Stain Charges 64595 1 4:42 PM [facility] DERMATOPATHOLOGY LABORATORY Embedded Images 4:42 PM [facility] DERMATOPATHOLOGY LABORATORY Pathology/Cytolo gy TISSUE SPECIMEN FROM SKIN / Unknown 10/03/2024 8:03 AM FOOD TECHNOLOGY TEACHER 10/03/2024 1:51 PM [facility] us Paige Long DO LAB - PATHOLOGY/CYTOLOGY ORDERABLES Final Result DERMATOPATHOLOGY LABORATORY [facility] - Department of Dermatology [address], [address] [phone] documented in this encounter Visit Diagnoses Not on filedocumented in this encounter Care Teams Tanner Rotary Drum Continuous Process Relationship Specialty Start Date End Date Vipul Weber DO [address] [place] [address] PCP - General 07/11/22 documented as of this encounter
--- OUTSIDE RECORDS SUMMARY | 2025-05-30 11:50 | XMS_ITS | Encounter Summary ---
Author Organization [facility] Address [address] [facility] [place] [address] Care Team Providers Care Power System Dispatcher Name Role Phone Vipul Weber DO Primary Care Provider [phone] Encounter Details Date Type Department Care Team (Late st Contact Info) Description 07/21/2024 Lab Requisition [facility] - DermPath Lab [address] [facility], [place] [phone] Paige Long DO [address] [facility] 3 [place] [address] Social History Tobacco Use Types Packs/Day Years Used Date Smoking Tobacco: Never Assessed Comments Unknown Sex and Gender Information Value Date Recorded Sex Assigned at Not on file Legal Sex Female 6:26 PM INTERNSHIP Gender Identity Not on file Sexual Orientation Not on file documented as of this encounter Plan of Treatment Not on file documented as of this encounter Procedures Procedure Name Priority Date/Time Associated Diagnosis Comments DERMATOPATHOLOGY Routine 07/21/2024 2:05 PM INTERNSHIP documented in this encounter Results * DERMATOPATHOLOGY (07/21/2024 2:05 PM INTERNSHIP) Case Report Dermatopathology Report Case: [id number] Authorizing Provider: Paige Long DO Collected: 07/21/2024 02:05 PM Ordering Location: [facility] - Received: 07/22/2024 11:30 AM DermPath Lab Pathologist: Radha Esquivel MD Specimens: A) - Skin, left shoulder B) - Skin, right mid back C) - Skin, left thigh 1:21 PM INTERNSHIP DERMATOPATHOLOGY LABORATORY Final Diagnosis Specimen A. 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 SKIN, left thigh: SQUAMOUS CELL CARCINOMA IN SITU (JERONIMO'S DISEASE) (D04.72) 4 1:21 PM [facility] DERMATOPATHOLOGY LABORATORY at 1321 INTERNSHIP Clinical History A-C: R/O NMSC 1:21 PM [facility] DERMATOPATHOLOGY LABORATORY Gross Description Specimen A: Received is one formalin filled container labeled with the patient's name and designated left shoulder. The specimen consists of a shave biopsy measuring 10x8x1 mm. Jar 0. Specimen B: Received is one formalin filled container labeled with the patient's name and designated right mid back. The specimen consists of a shave biopsy measuring 9x8x1 mm. Jar 0. Specimen C: Received is one formalin filled container labeled with the patient's name and designated left thigh. The specimen consists of a shave biopsy measuring 8x8x1 mm. Jar 0 4 1:21 PM [facility] DERMATOPATHOLOGY LABORATORY Microscopic Description Specimen A. SKIN, left shoulder: Attached to the undersurface of the epidermis, there are small aggregates of basaloid cells with a high nuclear to cytoplasmic ratio and peripheral palisading. Specimen B. SKIN, right mid back: The epidermis shows parakeratosis, full thickness disorderly maturation of keratinocytes, mitoses at different levels, and dyskeratotic cells. Specimen C. SKIN, left thigh: The epidermis shows parakeratosis, full thickness disorderly maturation of keratinocytes, mitoses at different levels, and dyskeratotic cells. 4 1:21 PM [facility] DERMATOPATHOLOGY LABORATORY Disclaimer An external and internal [...] purposes. Billing Codes Specimen Charges Stain Charges 52210 79913 63260 1 1 1 4 1:21 PM [facility] DERMATOPATHOLOGY LABORATORY Embedded Images 4 1:21 PM [facility] DERMATOPATHOLOGY LABORATORY Pathology/Cytology TISSUE SPECIMEN FROM SKIN / Unknown 07/21/2024 2:05 PM INTERNSHIP 07/22/2024 11:30 AM INTERNSHIP Miscellaneous samples (specimen) TISSUE SPECIMEN FROM SKIN / Unknown 07/21/2024 2:05 PM INTERNSHIP 07/22/2024 11:30 AM INTERNSHIP Miscellaneous samples (specimen) TISSUE SPECIMEN FROM SKIN / Unknown 07/21/2024 2:05 PM INTERNSHIP 07/22/2024 11:30 AM INTERNSHIP us Paige Long DO LAB - PATHOLOGY/CYTOLOGY ORDERABLES Final Result DERMATOPATHOLOGY LABORATORY [facility] - Department of Dermatology [facility] Specialized Medicine [address] [place] [address], [address] [phone] documented in this encounter Visit Diagnoses Not on filedocumented in this encounter Care Teams Power System Dispatcher Relationship Specialty Start Date End Date Vipul Weber DO [address] [place] [address] PCP - General 07/11/22 documented as of this encounter
--- OUTSIDE RECORDS SUMMARY | 2025-05-30 11:50 | XMS_ITS | Clinical Summary ---
Author Organization [facility] Address [address] [facility] [place] [address] Care Team Providers Care Supply Chain Associate Name Role Phone Vipul Weber DO Primary Care Provider [phone] Source Comments [facility],non-owned Affiliates and Associated Physician Practices is amultiple site organization consisting of ambulatory clinics and hospital sitesin [place], [place], [place] and [place]. This disclosure is being madepursuant to the Care Everywhere program and may not contain all information available regarding this patient. 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 Gender Identity Not on file Sexual Orientation Not on file Plan of Treatment Health Maintenance Due Date Last Done Comments BONE DENSITY TESTING 1944 DTAP/TDAP/TD VACCINES (1 - Tdap) 11/19/1963 PNEUMOCOCCAL VACCINE 50+ (1 of 1 - PCV) 1994 ZOSTER VACCINE (1 of 2) 1994 Respiratory Syncytial Virus (RSV) Vaccine Pt: or over 60 yrs (1 - 1-dose 75+ series) 11/19/2019 DEPRESSION SCREENING 09/07/2024 MEDICARE AWV CALENDAR YEAR 2024 COVID-19 VACCINE ( - 2023-2 5 season) 2025 INFLUENZA VACCINE (#1) 2025 HEPATITIS B VACCINE Aged Out No longe r eligible based on patient's age to complete this topic HIB VACCINE Aged Out No longer eligi ble based on patient's age to complete this topic HPV VACCINE Aged Out No longer eligi ble based on patient's age to complete this topic MENINGOCOCCAL (Group B) VACC INE SHARED DECISION-MAKING Aged Out No longer eligibl e based on patient's age to complete this topic MENINGOCOCCAL GROUPS A/C/Y/W VACCINE Aged Out No longer eligible b ased on patient's age to complete this topic Insurance AETNA AETNA MEDICARE ADV Care Teams Supply Chain Associate Relationship Specialty Start Date End Date Vipul Weber DO [address] [place] [address] PCP - General 07/11/22
--- OUTSIDE RECORDS SUMMARY | 2025-05-30 11:50 | XMS_ITS | Encounter Summary ---
Author Organization [facility] Address [address] [place] [address] Care Team Providers Care Glassblower Name Role Phone Vipul Weber DO Primary Care Provider [phone] Encounter Details Date Type Department Care Team (Late st Contact Info) Description 10/18/2024 Lab Requisition [facility] - DermPath Lab [address] [facility] [address] Rola Rodney MD [address] [place] [address] Social History Tobacco Use Types Packs/Day Years Used Date Smoking Tobacco: Never Assessed Comments Unknown Sex and Gender Information Value Date Recorded Sex Assigned at Not on file Legal Sex Female 6:26 PM MANAGER COLLECTION Gender Identity Not on file Sexual Orientation Not on file documented as of this encounter Plan of Treatment Not on file documented as of this encounter Procedures Procedure Name Priority Date/Time Associated Diagnosis Comments DERMATOPATHOLOGY Routine 10/18/2024 3:28 PM MANAGER COLLECTION documented in this encounter Results * DERMATOPATHOLOGY (10/18/2024 3:28 PM MANAGER COLLECTION) Case Report Dermatopathology Report Case: [id number] Authorizing Provider: Rola Rodney MD Collected: 10/18/2024 03:28 PM Ordering Location: [facility] - Received: 10/19/2024 02:20 PM DermPath Lab Pathologist: Ameena Esquivel MD Specimen: Skin, left shoulder 12:50 PM MANAGER COLLECTION DERMATOPATHOLOGY LABORATORY Final Diagnosis Specimen A. SKIN, left shoulder: RESIDUAL BASAL CELL CARCINOMA (C44.619) NOT PRESENT AT MARGIN DERMAL SCAR (L90.5) 12:50 PM [facility] DERMATOPATHOLOGY LABORATORY at [address] MANAGER COLLECTION Clinical History BCC, Superficial Multifocal. Please check margins 12:50 PM [facility] DERMATOPATHOLOGY LABORATORY Gross Description Specimen A: Received is one formalin filled container labeled with the patient's name and designated left shoulder.The specimen consists of an ellipse measuring 04b95x8 mm and is oriented with the notch at the 12 o'clock position labeled on the requisition as notch. The 12 to 6 o'clock margin is inked green. The 6 o'clock to 12 o'clock margin is inked red. The 12 o'clock tip is submitted in cassette 1. The 6 o'clock tip is submitted in cassette 2. The remainder of the ellipse is serially sectioned and submitted in cassettes 3-5. Jar 0. 12:50 PM [facility] DERMATOPATHOLOGY LABORATORY Microscopic Description Specimen A. SKIN, left shoulder: Sections show an area of fibrosis, flanked by residual neoplasm composed of atypical basaloid keratinocytes. This lesion is not present at the margin of the specimen. 12:50 PM [facility] DERMATOPATHOLOGY LABORATORY Disclaimer An external and internal positive and negative controls are appropriate for the histochemical, immunohistochemical and immunofluorescence stain(s) in this case (if any), except where stated explicitly. The performance characteristics of the stain(s) cited in this report were developed and its performance characteristic determined by the Dermatopathology Laboratory at [facility], directed by Dr. Yemii Gr. These tests need not be, and therefore are not, approved by the [place] Food and Drug Administration. The tests are used for clinical purposes. Billing Codes Specimen Charges Stain Charges 28715 1 12:50 PM [facility] DERMATOPATHOLOGY LABORATORY Embedded Images 12:50 PM [facility] DERMATOPATHOLOGY LABORATORY Pathology/Cytolo gy TISSUE SPECIMEN FROM SKIN / Unknown 10/18/2024 3:28 PM MANAGER COLLECTION 10/19/2024 2:20 PM MANAGER COLLECTION us Rola Rodney MD LAB - PATHOLOGY/CYTOLOGY ORDERA BLES Final Result DERMATOPATHOLOGY LABORATORY [facility] - Department of Dermatology [facility] Specialized Medicine [facility] [facility], [address]rd Floor [address] [phone] documented in this encounter Visit Diagnoses Not on filedocumented in this encounter Care Teams Glassblower Relationship Specialty Start Date End Date Vipul Weber DO [address] [place] [address] PCP - General 07/11/22 documented as of this encounter
--- OUTSIDE RECORDS SUMMARY | 2025-05-30 11:50 | XMS_ITS | Encounter Summary ---
Author Organization [facility] Address [address] [facility] [place] [address] Care Team Providers Care Global Professional Name Role Phone Vipul Weber DO Primary Care Provider [phone] Encounter Details Date Type Department Care Team (Late st Contact Info) Description 09/19/2024 Lab Requisition [facility] - DermPath Lab [address] [facility], [place] [phone] Paige Long DO [address] [facility] 3 [place] [address] Social History Tobacco Use Types Packs/Day Years Used Date Smoking Tobacco: Never Assessed Comments Unknown Sex and Gender Information Value Date Recorded Sex Assigned at Not on file Legal Sex Female 6:26 PM REAL ESTATE PROFESSOR Gender Identity Not on file Sexual Orientation Not on file documented as of this encounter Plan of Treatment Not on file documented as of this encounter Procedures Procedure Name Priority Date/Time Associated Diagnosis Comments DERMATOPATHOLOGY Routine 09/19/2024 11:1 8 AM REAL ESTATE PROFESSOR documented in this encounter Results * DERMATOPATHOLOGY (09/19/2024 11:18 AM REAL ESTATE PROFESSOR) Case Report Dermatopathology Report Case: [id number] Authorizing Provider: Paige Long DO Collected: 09/19/2024 11:18 AM Ordering Location: [facility] - Received: 09/20/2024 06:02 AM DermPath Lab Pathologist: Lavonne Riggs MD Specimen: Skin, right mid back 4:20 PM REAL ESTATE PROFESSOR DERMATOPATHOLOGY LABORATORY Final Diagnosis Specimen A. SKIN, right mid back: DERMAL SCAR RESIDUAL BASAL CELL CARCINOMA NOT IDENTIFIED (L90.5) 4:20 PM [facility] DERMATOPATHOLOGY LABORATORY at 1619 REAL ESTATE PROFESSOR Clinical History R/O BCC 4:20 PM [facility] DERMATOPATHOLOGY LABORATORY Gross Description Specimen A: Received is one formalin filled container labeled with the patient's name and designated right mid back. The specimen consists of a non-oriented ellipse of skin measuring 32t54g7 mm. The epidermal surface is unremarkable. The margin is inked green. The 12 o'clock and 6 o'clock tips are submitted in cassette 1. The remainder of the ellipse is serially sectioned and submitted in cassette 2-3. Jar 0. 4:20 PM [facility] DERMATOPATHOLOGY LABORATORY Microscopic Description Specimen A. SKIN, right mid back: There are fibroblasts and collagen bundles oriented parallel to the skin surface. There are elongated blood vessels, some of which are oriented perpendicular to the skin surface. No basal cell carcinoma is identified. 4:20 PM [facility] DERMATOPATHOLOGY LABORATORY Disclaimer An external and internal positive and negative controls are appropriate for the histochemical, immunohistochemical and immunofluorescence stain(s) in this case (if any), except where stated explicitly. The performance characteristics of the stain(s) cited in this report were developed and its performance characteristic determined by the Dermatopathology Laboratory at [facility], directed by Dr. Yeimi Gr. These tests need not be, and therefore are not, approved by the [place] Food and Drug Administration. The tests are used for clinical purposes. Billing Codes Specimen Charges Stain Charges 49536 1 4:20 PM [facility] DERMATOPATHOLOGY LABORATORY Embedded Images 4:20 PM [facility] DERMATOPATHOLOGY LABORATORY Pathology/Cytolo gy TISSUE SPECIMEN FROM SKIN / Unknown 09/19/2024 11:18 AM REAL ESTATE PROFESSOR 09/20/2024 6:02 AM [facility] us Paige Long DO LAB - PATHOLOGY/CYTOLOGY ORDERABLES Final Result DERMATOPATHOLOGY LABORATORY [facility] - Department of Dermatology [address], [address] [phone] documented in this encounter Visit Diagnoses Not on filedocumented in this encounter Care Teams Global Professional Relationship Specialty Start Date End Date Vipul Weber DO [address] [facility] 1 [place] [address] PCP - General 07/11/22 documented as of this encounter
== END 2025-05-30 11:04 | disposition home or self-care (01) ==
PROVIDERS: PCP Nurse Practitioner Family; Visit Provider Nurse Practitioner Family
DX: M25.511 Pain in right shoulder (principal); M25.512 Pain in left shoulder
CPT/HCPCS: 73030

== ENCOUNTER 2025-07-13 14:03 | Outpatient (CLI) | payer MEDICARE, SELFPAY ==
--- NOTE | ~2025-07-13 | XR_ITS ---
EXAMINATION: XR wrist LT min 3V, 07/13/2025 14:14 FAMILY LIVING EDUCATOR HISTORY: NON TRAUMA VERONICA WRIST AND THUMB PAIN/DECLINE REMOVING RINGS COMPARISON: No comparisons available. Findings: No acute fracture or malalignment. There are moderate to severe degenerative changes of the carpal bones of the first metacarpal carpal joint with widening of the scapholunate space suspicious for ligamentous injury Soft tissues unremarkable. Impression: No acute fracture or malalignment. Reviewed, dictated and finalized at location P. LY LIVING EDUCATOR Impression: No acute fracture or malalignment.
--- NOTE | ~2025-07-13 | XR_ITS ---
XR wrist RT min 3V, XR hand RT min 3V 07/13/2025 14:34 (accession [id number]), 07/13/2025 14:33 (accession [id number]) Indication: Right wrist and hand pain Procedure: 4 views right wrist and 3 views right hand Comparison: No prior studies for comparison. Findings: There is severe polyarticular osteoarthritis of the wrist and hand, most severe at the triscaphe, first carpal metacarpal and second-fifth distal interphalangeal joints. No acute fracture or traumatic malalignment. No soft tissue abnormality. No foreign bodies. Impression: 1: Severe polyarticular osteoarthritis. Reviewed, dictated and finalized at location O. NG DETAIL DRAFTSPERSON Impression: 1: Severe polyarticular osteoarthritis. Impression: 1: Severe polyarticular osteoarthritis.
--- NOTE | ~2025-07-13 | XR_ITS ---
EXAMINATION: XR hand LT min 3V DATE: 07/13/2025 14:34 INDICATION: Left hand pain TECHNIQUE: Posteroanterior, oblique and lateral views of the left hand were obtained. COMPARISON: None FINDINGS: Diffuse osteopenia. Bone alignment is normal. No fracture. Polyarticular osteoarthritis, severe at the. Scaphoid, triscaphe, first carpal metacarpal joints and at the second-fifth distal interphalangeal joints. There are associated central erosions with: Configuration at the second and fifth and likely developing at the third and fourth distal interphalangeal joints consistent with erosive osteoarthritis. Mild to moderate osteoarthritis at the remaining interphalangeal joints and at the metacarpophalangeal joints. Soft tissues are unremarkable. IMPRESSION: 1. 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 Reviewed, dictated and finalized at location A. ERS COMPENSATION PARALEGAL IMPRESSION: 1. 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
--- OUTSIDE RECORDS SUMMARY | 2025-07-13 20:25 | XMS_ITS | Clinical Summary ---
Author Organization [facility] [address] Address [address] [place] [address] Care Team Providers Care Printing Worker Supervisor Name Role Phone Thomas Abbott MD Primary Care Provider [phone] Allergies No known active allergies Medications lisinopril-hydro [...] on file Legal Sex Female 3:13 AM HEEL BUILDER Gender Identity Not on file Sexual Orientation Not on file Last Filed Vital Signs Vital Sign Reading [...] Plan of Treatment Not on file Insurance [facility] Care Teams Printing Worker Supervisor Relationship Specialty Start Date End Date Thomas Abbott MD PCP - General Internal Medicine 10/20/17
--- OUTSIDE RECORDS SUMMARY | 2025-07-13 20:25 | XMS_ITS | Encounter Summary ---
Author Organization [facility] Address [address] [facility] [place] [address] Care Team Providers Care Pond Worker Name Role Phone Vipul Weber DO Primary Care Provider [phone] Encounter Details Date Type Department Care Team (Late st Contact Info) Description 02/02/2025 Lab Requisition [facility] - DermPath Lab [address] [facility], [place] [phone] Paige Long DO [address] [facility] 3 [place] [address] Social History Tobacco Use Types Packs/Day Years Used Date Smoking Tobacco: Never Assessed Comments Unknown Sex and Gender Information Value Date Recorded Sex Assigned at Not on file 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 Gender Identity Not on file Sexual Orientation Not on file documented as of this encounter Plan of Treatment Not on file documented as of this encounter Procedures Procedure Name Priority Date/Time Associated Diagnosis Comments DERMATOPATHOLOGY Routine 02/02/2025 9:04 AM CDT documented in this encounter Results * DERMATOPATHOLOGY (02/02/2025 9:04 AM CDT) Case Report Dermatopathology Report Case: [id number] Authorizing Provider: Paige Long DO Collected: 02/02/2025 09:04 AM Ordering Location: [facility] - Received: 02/03/2025 07:10 AM DermPath Lab Pathologist: Keira Freedman MD Specimen: Skin, left forearm 1:18 PM CDT DERMATOPATHOLOGY LABORATORY Final Diagnosis Specimen A. 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 Yeimi Gr. These tests need not be, and therefore are not, approved by the [place] Food and Drug Administration. The tests are used for clinical purposes. Billing Codes Specimen Charges Stain Charges 10262 1 1:18 PM CDT DERMATOPATHOLOGY LABORATORY Embedded Images 1:18 PM CDT DERMATOPATHOLOGY LABORATORY Pathology/Cytolo gy TISSUE SPECIMEN FROM SKIN / Unknown 02/02/2025 9:04 AM CDT 02/03/2025 7:10 AM CDT us Paige Long DO LAB - PATHOLOGY/CYTOLOGY ORDERABLES Final Result DERMATOPATHOLOGY LABORATORY [facility] - Department of Dermatology [address], [address] [phone] documented in this encounter Visit Diagnoses Not on filedocumented in this encounter Care Teams Pond Worker Relationship Specialty Start Date End Date Vipul Weber DO [address] [place] [address] PCP - General 07/11/22 documented as of this encounter
--- OUTSIDE RECORDS SUMMARY | 2025-07-13 20:25 | XMS_ITS | Clinical Summary ---
Author Organization [facility] Address [address] [place] [address] Care Team Providers Care Airplane Cleaner Name Role Phone Vipul Weber DO Primary Care Provider [phone] Source Comments [facility],non-owned Affiliates and Associated Physician Practices is amultiple site organization consisting of ambulatory clinics and hospital sitesin [place], [place], [place] and [place]. This disclosure is being madepursuant to the Care Everywhere program and may not contain all information available regarding this patient. 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
--- OUTSIDE RECORDS SUMMARY | 2025-07-13 20:25 | XMS_ITS | Encounter Summary ---
Author Organization [facility] Address [address] [place] [address] Care Team Providers Care Numerologist Name Role Phone Vipul Weber DO Primary Care Provider [phone] Encounter Details Date Type Department Care Team (Late st Contact Info) Description 07/21/2024 Lab Requisition [facility] - DermPath Lab [address] [facility], [place] [address] Paige Long DO [address] [facility] 3 [place] [address] Social History Tobacco Use Types Packs/Day Years Used Date Smoking Tobacco: Never Assessed Comments Unknown Sex and Gender Information Value Date Recorded Sex Assigned at Not on file Legal Sex Female 6:26 PM MANAGER COMMUNITY DEVELOPMENT Gender Identity Not on file Sexual Orientation Not on file documented as of this encounter Plan of Treatment Not on file documented as of this encounter Procedures Procedure Name Priority Date/Time Associated Diagnosis Comments DERMATOPATHOLOGY Routine 07/21/2024 2:05 PM MANAGER COMMUNITY DEVELOPMENT documented in this encounter Results * DERMATOPATHOLOGY (07/21/2024 2:05 PM MANAGER COMMUNITY DEVELOPMENT) Case Report Dermatopathology Report Case: [id number] Authorizing Provider: Paige Long DO Collected: 07/21/2024 02:05 PM Ordering Location: [facility] - Received: 07/22/2024 11:30 AM DermPath Lab Pathologist: Radha Esquivel MD Specimens: A) - Skin, left shoulder B) - Skin, right mid back C) - Skin, left thigh 1:21 PM MANAGER COMMUNITY DEVELOPMENT DERMATOPATHOLOGY LABORATORY Final Diagnosis Specimen A. 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 SKIN, left thigh: SQUAMOUS CELL CARCINOMA IN SITU (JERONIMO'S DISEASE) (D04.72) 4 1:21 PM [facility] DERMATOPATHOLOGY LABORATORY at [address]1 MANAGER COMMUNITY DEVELOPMENT Clinical History A-C: R/O NMSC 1:21 PM [facility] DERMATOPATHOLOGY LABORATORY Gross Description [...] 8x8x1 mm. Jar 0 4 1:21 PM [facility] DERMATOPATHOLOGY LABORATORY Microscopic Description [...] levels, and dyskeratotic cells. 4 1:21 PM [facility] DERMATOPATHOLOGY LABORATORY Disclaimer An external and internal positive and negative controls are appropriate for the histochemical, immunohistochemical and immunofluorescence stain(s) in this case (if any), except where stated explicitly. The performance characteristics of the stain(s) cited in this report were developed and its performance characteristic determined by the Dermatopathology Laboratory at [facility], directed by Dr. Yeimi Gr. These tests need not be, and therefore are not, approved by the [place] Food and Drug Administration. The tests are used for clinical purposes. Billing Codes Specimen Charges Stain Charges 32199 35886 50427 1 1 1 4 1:21 PM MANAGER COMMUNITY DEVELOPMENT DERMATOPATHOLOGY LABORATORY Embedded Images 4 1:21 PM MANAGER COMMUNITY DEVELOPMENT DERMATOPATHOLOGY LABORATORY Pathology/Cytology TISSUE SPECIMEN FROM SKIN / Unknown 07/21/2024 2:05 PM MANAGER COMMUNITY DEVELOPMENT 07/22/2024 11:30 AM MANAGER COMMUNITY DEVELOPMENT Miscellaneous samples (specimen) TISSUE SPECIMEN FROM SKIN / Unknown 07/21/2024 2:05 PM MANAGER COMMUNITY DEVELOPMENT 07/22/2024 11:30 AM MANAGER COMMUNITY DEVELOPMENT Miscellaneous samples (specimen) TISSUE SPECIMEN FROM SKIN / Unknown 07/21/2024 2:05 PM MANAGER COMMUNITY DEVELOPMENT 07/22/2024 11:30 AM MANAGER COMMUNITY DEVELOPMENT us Paige Long DO LAB - PATHOLOGY/CYTOLOGY ORDERABLES Final Result DERMATOPATHOLOGY LABORATORY [facility] - Department of Dermatology [facility] Specialized Medicine [address] [place] [address], [address] [phone] documented in this encounter Visit Diagnoses Not on filedocumented in this encounter Care Teams Numerologist Relationship Specialty Start Date End Date Vipul Weber DO [address] [place] [address] PCP - General 07/11/22 documented as of this encounter
--- OUTSIDE RECORDS SUMMARY | 2025-07-13 20:25 | XMS_ITS | Encounter Summary ---
Author Organization [facility] Address [address] [place] [address] Care Team Providers Care Ice Skating Teacher Name Role Phone Vipul Weber DO Primary Care Provider [phone] Encounter Details Date Type Department Care Team (Late st Contact Info) Description 09/19/2024 Lab Requisition [facility] - DermPath Lab [address] [facility], [place] [phone] Paige Long DO [address] [facility] 3 [place] [address] Social History Tobacco Use Types Packs/Day Years Used Date Smoking Tobacco: Never Assessed Comments Unknown Sex and Gender Information Value Date Recorded Sex Assigned at Not on file Legal Sex Female 6:26 PM DIRECTOR CONTENT MARKETING Gender Identity Not on file Sexual Orientation Not on file documented as of this encounter Plan of Treatment Not on file documented as of this encounter Procedures Procedure Name Priority Date/Time Associated Diagnosis Comments DERMATOPATHOLOGY Routine 09/19/2024 11:1 8 AM DIRECTOR CONTENT MARKETING documented in this encounter Results * DERMATOPATHOLOGY (09/19/2024 11:18 AM DIRECTOR CONTENT MARKETING) Case Report Dermatopathology Report Case: [id number] Authorizing Provider: Paige Long DO Collected: 09/19/2024 11:18 AM Ordering Location: [facility] - Received: 09/20/2024 06:02 AM DermPath Lab Pathologist: Lavonne Riggs MD Specimen: Skin, right mid back 4:20 PM DIRECTOR CONTENT MARKETING DERMATOPATHOLOGY LABORATORY Final Diagnosis Specimen A. SKIN, right mid back: DERMAL SCAR RESIDUAL BASAL CELL CARCINOMA NOT IDENTIFIED (L90.5) 4:20 PM [facility] DERMATOPATHOLOGY LABORATORY at [address] DIRECTOR CONTENT MARKETING Clinical History R/O BCC 4:20 PM [facility] DERMATOPATHOLOGY LABORATORY Gross Description Specimen A: Received is one formalin filled container labeled with the patient's name and designated right mid back. The specimen consists of a non-oriented ellipse of skin measuring 57b52f6 mm. The epidermal surface is unremarkable. The margin is inked green. The 12 o'clock and 6 o'clock tips are submitted in cassette 1. The remainder of the ellipse is serially sectioned and submitted in cassette 2-3. Jar 0. 4:20 PM [facility] DERMATOPATHOLOGY LABORATORY Microscopic Description Specimen A. SKIN, right mid back: There are fibroblasts and collagen bundles oriented parallel to the skin surface. There are elongated blood vessels, some of which are oriented perpendicular to the skin surface. No basal cell carcinoma is identified. 4:20 PM [facility] DERMATOPATHOLOGY LABORATORY Disclaimer An external and internal positive and negative controls are appropriate for the histochemical, immunohistochemical and immunofluorescence stain(s) in this case (if any), except where stated explicitly. The performance characteristics of the stain(s) cited in this report were developed and its performance characteristic determined by the Dermatopathology Laboratory at [facility], directed by Dr. Yeimi Gr. These tests need not be, and therefore are not, approved by the [place] Food and Drug Administration. The tests are used for clinical purposes. Billing Codes Specimen Charges Stain Charges 94617 1 4:20 PM [facility] DERMATOPATHOLOGY LABORATORY Embedded Images 4:20 PM [facility] DERMATOPATHOLOGY LABORATORY Pathology/Cytolo gy TISSUE SPECIMEN FROM SKIN / Unknown 09/19/2024 11:18 AM DIRECTOR CONTENT MARKETING 09/20/2024 6:02 AM [facility] us Paige Long DO LAB - PATHOLOGY/CYTOLOGY ORDERABLES Final Result DERMATOPATHOLOGY LABORATORY [facility] - Department of Dermatology [address], [address] [phone] documented in this encounter Visit Diagnoses Not on filedocumented in this encounter Care Teams Ice Skating Teacher Relationship Specialty Start Date End Date iVpul Weber DO [address] [facility] 1 [place] [address] PCP - General 07/11/22 documented as of this encounter
--- OUTSIDE RECORDS SUMMARY | 2025-07-13 20:25 | XMS_ITS | Encounter Summary ---
Author Organization [facility] Address [address] [facility] [place] [address] Care Team Providers Care Business System Consultant Name Role Phone Vipul Weber DO Primary Care Provider [phone] Encounter Details Date Type Department Care Team (Late st Contact Info) Description 10/03/2024 Lab Requisition [facility] - DermPath Lab [address] [facility], [place] [phone] Paige Long DO [address] [facility] 3 [place] [address] Social History Tobacco Use Types Packs/Day Years Used Date Smoking Tobacco: Never Assessed Comments Unknown Sex and Gender Information Value Date Recorded Sex Assigned at Not on file Legal Sex Female 6:26 PM CURRICULUM AND INSTRUCTION SPECIALIST Gender Identity Not on file Sexual Orientation Not on file documented as of this encounter Plan of Treatment Not on file documented as of this encounter Procedures Procedure Name Priority Date/Time Associated Diagnosis Comments DERMATOPATHOLOGY Routine 10/03/2024 8:03 AM CURRICULUM AND INSTRUCTION SPECIALIST documented in this encounter Results * DERMATOPATHOLOGY (10/03/2024 8:03 AM CURRICULUM AND INSTRUCTION SPECIALIST) Case Report Dermatopathology Report Case: [id number] Authorizing Provider: Paige Long DO Collected: 10/03/2024 08:03 AM Ordering Location: [facility] - Received: 10/03/2024 01:51 PM DermPath Lab Pathologist: Lavonne Riggs MD Specimen: Skin, right inner thigh 4:42 PM CURRICULUM AND INSTRUCTION SPECIALIST DERMATOPATHOLOGY LABORATORY Final Diagnosis Specimen A. SKIN, right inner thigh: SQUAMOUS CELL CARCINOMA IN SITU (JERONIMO'S DISEASE) (D04.71) 4:42 PM [facility] DERMATOPATHOLOGY LABORATORY at [address] [facility] Clinical History R/O NMSC 4:42 PM [facility] DERMATOPATHOLOGY LABORATORY Gross Description Specimen A: Received is one formalin filled container labeled with the patient's name and designated right inner thigh. The specimen consists of a shave biopsy measuring 13x9x1 mm. Jar 0. 4:42 PM [facility] DERMATOPATHOLOGY LABORATORY Microscopic Description Specimen A. SKIN, right inner thigh: The epidermis shows parakeratosis, full thickness disorderly maturation of keratinocytes, mitoses at different levels, and dyskeratotic cells. 4:42 PM [facility] DERMATOPATHOLOGY LABORATORY Disclaimer An external and internal positive and negative controls are appropriate for the histochemical, immunohistochemical and immunofluorescence stain(s) in this case (if any), except where stated explicitly. The performance characteristics of the stain(s) cited in this report were developed and its performance characteristic determined by the Dermatopathology Laboratory at [facility], directed by Dr. Yeimi Gr. These tests need not be, and therefore are not, approved by the [place] Food and Drug Administration. The tests are used for clinical purposes. Billing Codes Specimen Charges Stain Charges 15029 1 4:42 PM [facility] DERMATOPATHOLOGY LABORATORY Embedded Images 4:42 PM [facility] DERMATOPATHOLOGY LABORATORY Pathology/Cytolo gy TISSUE SPECIMEN FROM SKIN / Unknown 10/03/2024 8:03 AM CURRICULUM AND INSTRUCTION SPECIALIST 10/03/2024 1:51 PM [facility] us Paige Long DO LAB - PATHOLOGY/CYTOLOGY ORDERABLES Final Result DERMATOPATHOLOGY LABORATORY [facility] - Department of Dermatology [address], [address] [phone] documented in this encounter Visit Diagnoses Not on filedocumented in this encounter Care Teams Business System Consultant Relationship Specialty Start Date End Date Vipul Weber DO [address] [place] [address] PCP - General 07/11/22 documented as of this encounter
--- OUTSIDE RECORDS SUMMARY | 2025-07-13 20:25 | XMS_ITS | Encounter Summary ---
Author Organization [facility] Address [address] [place] [address] Care Team Providers Care Railroad Firer/Fireman Name Role Phone Vipul Weber DO Primary Care Provider [phone] Encounter Details Date Type Department Care Team (Late st Contact Info) Description 10/18/2024 Lab Requisition [facility] - DermPath Lab [address] [place] [address] Rola Rodney MD [address] [place] [address] Social History Tobacco Use Types Packs/Day Years Used Date Smoking Tobacco: Never Assessed Comments Unknown Sex and Gender Information Value Date Recorded Sex Assigned at Not on file Legal Sex Female 6:26 PM MERCHANDISE COMPLAINT ADJUSTER Gender Identity Not on file Sexual Orientation Not on file documented as of this encounter Plan of Treatment Not on file documented as of this encounter Procedures Procedure Name Priority Date/Time Associated Diagnosis Comments DERMATOPATHOLOGY Routine 10/18/2024 3:28 PM MERCHANDISE COMPLAINT ADJUSTER documented in this encounter Results * DERMATOPATHOLOGY (10/18/2024 3:28 PM MERCHANDISE COMPLAINT ADJUSTER) Case Report Dermatopathology Report Case: [id number] Authorizing Provider: Rola Rodney MD Collected: 10/18/2024 03:28 PM Ordering Location: [facility] - Received: 10/19/2024 02:20 PM DermPath Lab Pathologist: Ameena Esquivel MD Specimen: Skin, left shoulder 12:50 PM MERCHANDISE COMPLAINT ADJUSTER DERMATOPATHOLOGY LABORATORY Final Diagnosis Specimen A. SKIN, left shoulder: RESIDUAL BASAL CELL CARCINOMA (C44.619) NOT PRESENT AT MARGIN DERMAL SCAR (L90.5) 12:50 PM [facility] DERMATOPATHOLOGY LABORATORY at [address] MERCHANDISE COMPLAINT ADJUSTER Clinical History BCC, Superficial Multifocal. Please check margins 12:50 PM [facility] DERMATOPATHOLOGY LABORATORY Gross Description Specimen A: Received is one formalin filled container labeled with the patient's name and designated left shoulder.The specimen consists of an ellipse measuring 40n29x2 mm and is oriented with the notch [...] in cassettes 3-5. Jar 0. 12:50 PM [facility] DERMATOPATHOLOGY LABORATORY Microscopic Description Specimen A. SKIN, left shoulder: Sections show an area of fibrosis, flanked by residual neoplasm composed of atypical basaloid keratinocytes. This lesion is not present at the margin of the specimen. 12:50 PM [facility] DERMATOPATHOLOGY LABORATORY Disclaimer An external and internal positive and negative controls are appropriate for the histochemical, immunohistochemical and immunofluorescence stain(s) in this case (if any), except where stated explicitly. The performance characteristics of the stain(s) cited in this report were developed and its performance characteristic determined by the Dermatopathology Laboratory at [facility], directed by Dr. Yeimi Gr. These tests need not be, and therefore are not, approved by the [place] Food and Drug Administration. The tests are used for clinical purposes. Billing Codes Specimen Charges Stain Charges 31714 1 12:50 PM [facility] DERMATOPATHOLOGY LABORATORY Embedded Images 12:50 PM [facility] DERMATOPATHOLOGY LABORATORY Pathology/Cytolo gy TISSUE SPECIMEN FROM SKIN / Unknown 10/18/2024 3:28 PM MERCHANDISE COMPLAINT ADJUSTER 10/19/2024 2:20 PM MERCHANDISE COMPLAINT ADJUSTER us Rola Rodney MD LAB - PATHOLOGY/CYTOLOGY ORDERA BLES Final Result DERMATOPATHOLOGY LABORATORY [facility] - Department of Dermatology [facility] Specialized Medicine [facility] [facility], [address]rd Floor [address] [phone] documented in this encounter Visit Diagnoses Not on filedocumented in this encounter Care Teams Railroad Firer/Fireman Relationship Specialty Start Date End Date Vipul Weber DO [address] [place] [address] PCP - General 07/11/22 documented as of this encounter
== END 2025-07-13 14:04 | disposition home or self-care (01) ==
PROVIDERS: PCP Nurse Practitioner Family; Visit Provider Nurse Practitioner Adult Health
DX: M15.4 Erosive (osteo)arthritis (principal); M25.541 Pain in joints of right hand
CPT/HCPCS: 73110; 73130

== ENCOUNTER 2025-09-04 11:52 | Outpatient (CLI) | payer MEDICARE, SELFPAY ==
--- NOTE | ~2025-09-04 | XR_ITS ---
XR sacroiliac joints min 3V, XR hip BI wo pelvis 09/04/2025 12:26 (accession [id number]), 09/04/2025 12:25 (accession [id number]) Indication: Left hip pain for 30 years Procedure: 3 view sacroiliac joint and 2 views each hip Comparison: 09/04/2025 Findings: Mild symmetric degenerative changes of the sacroiliac joints. Lower lumbar spondylosis partially visualized. There is osteitis pubis. There is osteoarthritis of the hips, right greater than left. No acute fracture or traumatic malalignment. Impression: 1: Polyarticular osteoarthritis involving the sacroiliac joints, hips and lower lumbar spine. Reviewed, dictated and finalized at location O. PATIONAL THERAPY ASSIST Impression: 1: Polyarticular osteoarthritis involving the sacroiliac joints, hips and lower lumbar spine. Impression: 1: Polyarticular osteoarthritis involving the sacroiliac joints, hips and lower lumbar spine.
--- OUTSIDE RECORDS SUMMARY | 2025-09-04 12:27 | XMS_ITS | Clinical Summary ---
Author Organization [facility] Address [address] [place] [address] Care Team Providers Care Manager Of Internal Name Role Phone Vipul Weber DO Primary Care Provider [phone] Source Comments [facility],non-owned Affiliates and Associated Physician Practices is amultiple site organization consisting of ambulatory clinics and hospital sitesin [place], [place], [place] and [place]. This disclosure is being madepursuant to the Care Everywhere program and may not contain all information available regarding this patient. 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
--- OUTSIDE RECORDS SUMMARY | 2025-09-04 12:27 | XMS_ITS | Encounter Summary ---
Author Organization [facility] Address [address] [place] [address] Care Team Providers Care Dairy Husbandman Name Role Phone Vipul Weber DO Primary Care Provider [phone] Encounter Details Date Type Department Care Team (Late st Contact Info) Description 10/18/2024 Lab Requisition [facility] - DermPath Lab [address] [facility] [place] [address] Rola Rodney MD [address] [place] [address] Social History Tobacco Use Types Packs/Day Years Used Date Smoking Tobacco: Never Assessed Comments Unknown Sex and Gender Information Value Date Recorded Sex Assigned at Not on file 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 Gender Identity Not on file Sexual Orientation Not on file documented as of this encounter Plan of Treatment Not on file documented as of this encounter Procedures Procedure Name Priority Date/Time Associated Diagnosis Comments DERMATOPATHOLOGY Routine 10/18/2024 3:28 PM LEGAL SERVICE SPECIALIST documented in this encounter Results * DERMATOPATHOLOGY (10/18/2024 3:28 PM LEGAL SERVICE SPECIALIST) Case Report Dermatopathology Report Case: [id number] Authorizing Provider: Rola Rodney MD Collected: 10/18/2024 03:28 PM Ordering Location: [facility] - Received: 10/19/2024 02:20 PM DermPath Lab Pathologist: Ameena Esquivel MD Specimen: Skin, left shoulder 12:50 PM LEGAL SERVICE SPECIALIST DERMATOPATHOLOGY LABORATORY Final Diagnosis Specimen A. 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 Please check margins 12:50 PM [facility] DERMATOPATHOLOGY LABORATORY Gross Description Specimen A: Received is one formalin filled container labeled with the patient's name and designated left shoulder.The specimen consists of an ellipse measuring 42y35c6 mm and is oriented with the notch [...] in cassettes 3-5. Jar 0. 12:50 PM [facility] DERMATOPATHOLOGY LABORATORY Microscopic Description Specimen A. SKIN, left shoulder: Sections show an area of fibrosis, flanked by residual neoplasm composed of atypical basaloid keratinocytes. This lesion is not present at the margin of the specimen. 12:50 PM [facility] DERMATOPATHOLOGY LABORATORY Disclaimer An external and internal positive and negative controls are appropriate for the histochemical, immunohistochemical and immunofluorescence stain(s) in this case (if any), except where stated explicitly. The performance characteristics of the stain(s) cited in this report were developed and its performance characteristic determined by the Dermatopathology Laboratory at [facility], directed by Dr. Yeimi Gr. These tests need not be, and therefore are not, approved by the [place] Food and Drug Administration. The tests are used for clinical purposes. Billing Codes Specimen Charges Stain Charges 78716 1 12:50 PM [facility] DERMATOPATHOLOGY LABORATORY Embedded Images 12:50 PM [facility] DERMATOPATHOLOGY LABORATORY Pathology/Cytolo gy TISSUE SPECIMEN FROM SKIN / Unknown 10/18/2024 3:28 PM LEGAL SERVICE SPECIALIST 10/19/2024 2:20 PM LEGAL SERVICE SPECIALIST us Rola Rodney MD LAB - PATHOLOGY/CYTOLOGY ORDERA BLES Final Result DERMATOPATHOLOGY LABORATORY [facility] - Department of Dermatology [facility] Specialized Medicine [facility] [facility], 3rd Floor [address] [phone] documented in this encounter Visit Diagnoses Not on filedocumented in this encounter Care Teams Dairy Husbandman Relationship Specialty Start Date End Date Vipul Weber DO [address] [place] [address] PCP - General 07/11/22 documented as of this encounter
--- OUTSIDE RECORDS SUMMARY | 2025-09-04 12:27 | XMS_ITS | Clinical Summary ---
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
--- OUTSIDE RECORDS SUMMARY | 2025-09-04 12:27 | XMS_ITS | Encounter Summary ---
Author Organization [facility] Address [address] [place] [address] Care Team Providers Care Forming Machine Adjuster Name Role Phone Vipul Weber DO Primary Care Provider [phone] Encounter Details Date Type Department Care Team (Late st Contact Info) Description 02/02/2025 Lab Requisition [facility] - DermPath Lab [address] [facility] [place] [id number] Paige Long DO [address] [place] [address] Social History Tobacco Use Types Packs/Day Years Used Date Smoking Tobacco: Never Assessed Comments Unknown Sex and Gender Information Value Date Recorded Sex Assigned at Not on file 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 Yeimi Gr. These tests need not be, and therefore are not, approved by the [place] Food and Drug Administration. The tests are used for clinical purposes. Billing Codes Specimen Charges Stain Charges 02624 1 1:18 PM CDT DERMATOPATHOLOGY LABORATORY Embedded Images 1:18 PM CDT DERMATOPATHOLOGY LABORATORY Pathology/Cytolo gy TISSUE SPECIMEN FROM SKIN / Unknown 02/02/2025 9:04 AM CDT 02/03/2025 7:10 AM CDT us Paige Long DO LAB - PATHOLOGY/CYTOLOGY ORDERABLES Final Result DERMATOPATHOLOGY LABORATORY [facility] - Department of Dermatology [address] [phone] documented in this encounter Visit Diagnoses Not on filedocumented in this encounter Care Teams Forming Machine Adjuster Relationship Specialty Start Date End Date Vipul Weber DO [address] [place] [address] PCP - General 07/11/22 documented as of this encounter
--- OUTSIDE RECORDS SUMMARY | 2025-09-04 12:27 | XMS_ITS | Clinical Summary ---
Author Organization [facility] Address [address] [place] [address] Care Team Providers Care Ferry Operator Name Role Phone Hafsa Luna NP Primary Care Provider [phone] Allergies No known active allergies Medications rizatriptan (MAXALT) 10 MG tablet Take 1 tablet (10 mg total) by mouth as needed for Migraine. May repeat in 2 hours if needed Active Propylene Glycol-Glycerin 1-0.3 % Solution Place 1 drop into both eyes 4 (four) times daily as needed (dry eyes). Active Vitamin D3 125 mcg Tab Take 1 tablet (125 mcg total) by mouth daily. Active ezetimibe (ZETIA) 10 MG tablet Take 1 tablet (10 mg total) by mouth daily. Active metoprolol succinate ER (TOPROL-XL) 25 MG 24 hr tablet Take 0.5 tablets (12.5 mg total) by mouth nightly at bedtime. Active rosuvastatin (CRESTOR) 40 MG tablet Take 1 tablet (40 mg total) by mouth daily. Active sertraline (ZOLOFT) 100 MG tablet Take 1 tablet (100 mg total) by mouth daily. Active ondansetron (ZOFRAN) 4 MG tablet Take 1 tablet (4 mg total) by mouth every 8 (eight) hours as needed for Nausea. Active lisinopril (PRINIVIL) 40 MG tablet Take 1 tablet (40 mg total) by mouth daily. Active buPROPion XL (WELLBUTRIN XL) 150 MG 24 hr tablet Take 1 tablet (150 mg total) by mouth daily. Active HYDROcodone-nicholas taminophen (NORCO) 10-325 MG tablet Take 1 tablet by mouth every 4 (four) hours as needed for Pain. Active Encounters Date Type Department Care Team Description 08/23/2025 12:55 PM SECURITY SYSTEM ADMINISTRATOR - 08/23/2025 9:44 PM SECURITY SYSTEM ADMINISTRATOR Emergency [facility] [place] [address] Darrin Mccord DO Headache Discharge Disposition: Home or Self Care (Routine Discharge) 08/23/2025 Travel from Last 3 Months Social History Tobacco Use Types Packs/Day Years Used Date Smoking Tobacco: Never Smokeless Tobacco: Never Tobacco Cessation:Counseling Given: Not Answered Alcohol Use Standard Drinks/Week Comments Not Currently 0 (1 standard drink = 0.6 oz pur e alcohol) Comments No Sex and Gender Information Value Date Recorded Sex Assigned at Female 08/23/2025 12:45 PM SECURITY SYSTEM ADMINISTRATOR Legal Sex Female 12:22 PM SECURITY SYSTEM ADMINISTRATOR Gender Identity Not on file Sexual Orientation Not on file Last Filed Vital Signs Vital Sign Reading Time Taken Comments Blood Pressure 117/68 08/23/2025 9:00 PM SECURITY SYSTEM ADMINISTRATOR Pulse 84 08/23/2025 9:00 PM SECURITY SYSTEM ADMINISTRATOR Temperature 36.5 C (97.7 F) 08/23/2025 12:28 PM SECURITY SYSTEM ADMINISTRATOR Respiratory Rate 18 08/23/2025 9:00 PM SECURITY SYSTEM ADMINISTRATOR Oxygen Saturation 93% 08/23/2025 9:00 PM SECURITY SYSTEM ADMINISTRATOR Inhaled Oxygen Concentration - - Weight 77.1 kg (170 lb) 08/23/2025 12:28 PM SECURITY SYSTEM ADMINISTRATOR Height 162.6 cm (5' 4) 08/23/2025 12:28 PM SECURITY SYSTEM ADMINISTRATOR Body Mass Index 29.18 08/23/2025 12:28 PM SECURITY SYSTEM ADMINISTRATOR Plan of Treatment Health Maintenance Due Date Last Done Comments DTaP, Tdap and Td Vaccines (1 - Tdap) 11/19/1964 Annual Medicare Wellness Visit 2009 Dexa Scan (General) 2009 COVID-19 Vaccine ( - season) 2025 01/21/2021, 12/31/2020 Influenza Adult (#1) 2025 06/07/2024, 05/18/2020, 06/10/2019, Additional history exists Pneumococcal Vaccine: 50+ Years Completed 06/07/2024, 09/27/2016 RSV Immunization or 60+ Years Completed 12/07/2024 Zoster Vaccines Completed 12/07/2024, 01/05, 01/21/2023 Hepatitis A Vaccines Aged Out No long er eligible based on patient's age to complete this topic Meningococcal B Vaccine Aged Out No l onger eligible based on patient's age to complete this topic Meningococcal Vaccine Aged Out No keli sanjuana eligible based on patient's age to complete this topic RSV Immunizations Under 20 Months Aged Out No longer eligible based on patient's age to complete this topic Procedures Procedure Name Priority Date/Time Associated Diagnosis Comments CTA HEAD+NECK STAT 08/23/2025 2:13 PM SECUR[address] SYSTEM ADMINISTRATOR CT HEAD WO CON STAT 08/23/2025 2:13 PM SECURITY SYSTEM ADMINISTRATOR ECG 12-LEAD Routine 08/23/2025 1:13 PM SECURITY SYSTEM ADMINISTRATOR SED RATE, ERYTHROCYTE (ESR) Routine 08/23/2025 1:11 PM SECURITY SYSTEM ADMINISTRATOR TROPONIN, QUANT STAT 08/23/2025 1:11 PM SECURITY SYSTEM ADMINISTRATOR BASIC METABOLIC PANEL STAT 08/23/2025 1:11 PM SECURITY SYSTEM ADMINISTRATOR HC CBC AUTO W/AUTO DIFF STAT 08/23/2025 1:11 PM SECURITY SYSTEM ADMINISTRATOR from Last 3 Months Results * CTA HEAD+NECK (08/23/2025 2:13 PM SECURITY SYSTEM ADMINISTRATOR) Anatomical Region Laterality Modality Head, Neck Computed Tomogra phy 08/23/2025 2:37 PM SECURITY SYSTEM ADMINISTRATOR Impressions 08/23/2025 2:43 PM SECURITY SYSTEM ADMINISTRATOR IMPRESSION: HEAD CTA: 1. No focal intracranial stenosis, large vessel occlusion or aneurysm. There is mild dolichoectasia of the cavernous and paraclinoid left internal carotid artery measuring up to 6 mm in diameter. 2. Small age-indeterminate infarct within the head of the left caudate nucleus. 3. Mild cerebral atrophy with moderate small vessel ischemic changes of the supratentorial white matter. NECK CTA: 1. No measurable carotid or vertebral artery stenosis. No evidence of aneurysm or dissection within the neck. 2. Moderate multilevel degenerative changes of the cervical spine. MRI would be more sensitive for the detection of an acute infarct. Referred By: Interpreted By: Levi Jessica MD, 08/23/2025 2:37 PM Narrative 08/23/2025 2:43 PM SECURITY SYSTEM ADMINISTRATOR [address] [address] EXAMINATION:CT from a ladder neck with contrast 08/23/2025 INDICATION:Headache, vision changes TECHNIQUE: Axial CT images of the head and neck were acquired following the administration of 100 mL SV 370 contrast intravenously. Axial sagittal and coronal reformats were constructed. Radiation dose reduction techniques were used. 3D MIPS were constructed. Carotid stenosis is reported according to NASCET criteria. COMPARISON: Head CT without contrast 08/23/2025 FINDINGS: HEAD CTA: No acute intracranial hemorrhage within limits of a contrast enhanced head CT. There is mild cerebral atrophy with concordant province of ventricles. Moderate decreased density noted within the supratentorial white matter. There is a 6 mm hypodensity within the head of the left caudate nucleus. No sulcal effacement or loss culver/white matter differentiation. No acute osseous abnormality. The paranasal sinuses and mastoid air cells are clear. Orbits and globes are unremarkable. Bilateral ocular lens replacement noted. There is opacification of the intracranial internal carotid, vertebral and basilar arteries. There is opacification of the anterior, middle and posterior cerebral arteries. No focal canal stenosis, large vessel occlusion or aneurysm. There is opacification of the superior cerebellar arteries and posterior inferior cerebellar arteries There is mild asymmetric fusiform dilatation cavernous sinus and paraclinoid left internal carotid artery measuring up to 5.9 mm in diameter compared to the 4.8 mm cavernous right ICA. There is opacification of the superior sagittal sinus, internal cerebral veins, medially, straight sinus contrast per sinuses and sigmoid sinuses. No abnormal enhancement. NECK CTA: Calcified plaque noted within the aortic arch. The origins of great vessels are unremarkable. The innominate and proximal right subclavian artery are unremarkable. The right common carotid artery and cervical right internal carotid are unremarkable The left common carotid artery and cervical left internal carotid are unremarkable Vertebral arteries are opacified No measurable carotid or vertebral artery stenosis. No evidence of aneurysm or dissection within the neck. There is a fusion of the C5/C6 disc space. Moderate disc space narrowing and facet arthropathy noted throughout the cervical spine. There is a 1.3 cm hypodense nodule within the right lobe of the thyroid gland. No acute abnormality the visualized lung apices. Procedure Note Levi Jessica MD - 08/23/2025 [facility] [address] [place], [place] [address] EXAMINATION:CT from a ladder neck with contrast 08/23/2025 INDICATION:Headache, vision changes TECHNIQUE: Axial CT images of the head and neck were acquired followingthe administration of 100 mL SV 370 contrast intravenously. Axialsagittal and coronal reformats were constructed. Radiation dose reductiontechniques were used. 3D MIPS were constructed. Carotid stenosis isreported according to NASCET criteria. COMPARISON: Head CT without contrast 08/23/2025 FINDINGS: HEAD CTA: No acute intracranial hemorrhage within limits of a contrastenhanced head CT. There is mild cerebral atrophy with concordant provinceof ventricles. Moderate decreased density noted within the supratentorialwhite matter. There is a 6 mm hypodensity within the head of the left caudate nucleus.No sulcal effacement or loss culver/white matter differentiation. No acuteosseous abnormality. The paranasal sinuses and mastoid air cells areclear. Orbits and globes are unremarkable. Bilateral ocular lensreplacement noted. There is opacification of the intracranial internal carotid, vertebral andbasilar arteries. There is opacification of the anterior, middle andposterior cerebral arteries. No focal canal stenosis, large vessel occlusion or aneurysm. There is opacification of the superior cerebellar arteries and posteriorinferior cerebellar arteries There is mild asymmetric fusiform dilatation cavernous sinus andparaclinoid left internal carotid artery measuring up to 5.9 mm indiameter compared to the 4.8 mm cavernous right ICA. There is opacification of the superior sagittal sinus, internal cerebralveins, medially, straight sinus contrast per sinuses and sigmoid sinuses.No abnormal enhancement. NECK CTA: Calcified plaque noted within the aortic arch. The origins ofgreat vessels are unremarkable. The innominate and proximal rightsubclavian artery are unremarkable. The right common carotid artery andcervical right internal carotid are unremarkable The left common carotid artery and cervical left internal carotid areunremarkable Vertebral arteries are opacified No measurable carotid or vertebral artery stenosis. No evidence ofaneurysm or dissection within the neck. There is a fusion of the C5/C6 disc space. Moderate disc space narrowingand facet arthropathy noted throughout the cervical spine. There is a 1.3cm hypodense nodule within the right lobe of the thyroid gland. No acuteabnormality the visualized lung apices. IMPRESSION: HEAD CTA: 1. No focal intracranial stenosis, large vessel occlusion or aneurysm.There is mild dolichoectasia of the cavernous and paraclinoid leftinternal carotid artery measuring up to 6 mm in diameter. 2. Small age-indeterminate infarct within the head of the left caudatenucleus. 3. Mild cerebral atrophy with moderate small vessel ischemic changes ofthe supratentorial white matter. NECK CTA: 1. No measurable carotid or vertebral artery stenosis. No evidence ofaneurysm or dissection within the neck. 2. Moderate multilevel degenerative changes of the cervical spine. MRI would be more sensitive for the detection of an acute infarct. Referred By: Interpreted By: Levi Jessica MD, 08/23/2025 2:37 PM Darrin Mccord DO CT Final Result * CT HEAD WO CON (08/23/2025 2:13 PM SECURITY SYSTEM ADMINISTRATOR) Anatomical Region Laterality Modality Head Computed Tomogra phy 08/23/2025 2:36 PM SECURITY SYSTEM ADMINISTRATOR Impressions 08/23/2025 2:38 PM SECURITY SYSTEM ADMINISTRATOR IMPRESSION: 1. No CT evidence of an acute intracranial abnormality. 2. Mild to moderate chronic small vessel ischemic change. Ordered By: DARRIN MCCORD Interpreted By: Kash Leigh MD, 08/23/2025 2:36 PM Narrative 08/23/2025 2:38 PM SECURITY SYSTEM ADMINISTRATOR [facility] [address], [place] [address] Examination: CT HEAD WO CON, 08/23/2025 2:01 PM. Technique: Computed tomographic images of the head were obtained without intravenous contrast. Additional coronal and sagittal reformatted images were generated at a separate workstation. A dose lowering technique was used for this procedure, which may include, but is not limited to, dose reduction technique, automated exposure control, the use of iterative reconstruction, and ALARA (As Low As Reasonably Achievable) / Image Gently techniques. Clinical history: headache with vision changes Comparison: None available Findings: There is no acute intracranial hemorrhage. There is no extra-axial fluid collection. Preserved culver-white matter differentiation. Scattered subcortical and periventricular white matter foci demonstrating hypodensity that are nonspecific but most commonly seen in setting of chronic small vessel ischemic change. Prior bilateral ocular lens extractions with prosthetic lens implantation. Paranasal sinuses and mastoid air cells are well aerated. No acute fracture Procedure Note Kash Leigh MD - 08/23/2025 [facility] [address], [place] [address] Examination: CT HEAD WO CON, 08/23/2025 2:01 PM. Technique: Computed tomographic images of the head were obtained withoutintravenous contrast. Additional coronal and sagittal reformatted imageswere generated at a separate workstation. A dose lowering technique wasused for this procedure, which may include, but is not limited to, dosereduction technique, automated exposure control, the use of iterativereconstruction, and ALARA (As Low As Reasonably Achievable) / Image Gentlytechniques. Clinical history: headache with vision changes Comparison: None available Findings: There is no acute intracranial hemorrhage. There is no extra-axial fluidcollection. Preserved culver-white matter differentiation. Scatteredsubcortical and periventricular white matter foci demonstratinghypodensity that are nonspecific but most commonly seen in setting ofchronic small vessel ischemic change. Prior bilateral ocular lensextractions with prosthetic lens implantation. Paranasal sinuses andmastoid air cells are well aerated. No acute fracture IMPRESSION: 1. No CT evidence of an acute intracranial abnormality. 2. Mild to moderate chronic small vessel ischemic change. 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: [id number] : 1945 Requested By: MARY COLE Order Number: [id number] Reading : Arnoldo Simons Measurements Intervals [place] Rate: 79 P: -3 ID: 127 QRS: 49 QRSD: 100 T: 51 QT: 375 QTc: 431 Interpretive Statements SINUS RHYTHM LOW QRS VOLTAGE IN PRECORDIAL LEADS [QRS DEFLECTION < 1.0 mV IN CHEST LEADS] No previous ECG available for comparison No ischemic changes Preliminary EKG Interpretation by Darrin Mccord DO RITY SYSTEM ADMINISTRATOR Procedure Note Arnoldo Simons MD - 08/23/2025 [facility] [address] Test Date: 2025-08-23 Pat Name: GEOVANNA GAO Department: 41 Room: EXAM09 Gender: Female Production Stage Manager: [id number] : 1945 Requested By: MARY COLE Order Number: [id number] Reading JORGE LUIS Simons Measurements Intervals [place] Rate: 79 P: -3 ID: 127 QRS: 49 QRSD: 100 T: 51 QT: 375 QTc: 431 Interpretive Statements SINUS RHYTHM LOW QRS VOLTAGE IN PRECORDIAL LEADS [QRS DEFLECTION < 1.0 mV IN CHESTLEADS] No previous ECG available for comparison No ischemic changes Preliminary EKG Interpretation by Darrin Mccord DO RITY SYSTEM ADMINISTRATOR Mary Cole PA-C ECG ORDERABLES Final Resul t Performing Organization Address [facility] Co de Phone Number [facility] * TROPONIN, QUANT (08/23/2025 1:11 PM SECURITY SYSTEM ADMINISTRATOR) Pathologist [facility] TROPONIN I HIGH SENSITIVITY 39 <54 ng/L 08/23/2025 1:52 PM SECURITY SYSTEM ADMINISTRATOR [facility] Comment: HIGH DOSES OF BIOTIN, TROPONIN-SPECIFIC AUTOANTIBODIES, AND ANTIBODY THERAPY CONTAINING HAMA MAY INTERFERE WITH THIS TEST RESULT. CORRELATION TO CLINICAL HISTORY AND PRESENTATION RECOMMENDED. BLOOD VENOUS BLOOD SPECIMEN / Unknown 08/23/2025 1:11 PM SECURITY SYSTEM ADMINISTRATOR Mary Cole PA-C LABORATORY Final Resul t Performing Organization Address [facility] de Phone Number [facility] [address] [id number], [place] [phone] * (ABNORMAL) SED RATE, ERYTHROCYTE (ESR) (08/23/2025 1:11 PM SECURITY SYSTEM ADMINISTRATOR) Pathologist [facility] ESR 34(H) <30 MM/HR 08/23/2025 2:09 PM SECURITY SYSTEM ADMINISTRATOR [facility] Comment:Testing performed on [employer] iSED. BLOOD VENOUS BLOOD SPECIMEN / Unknown 08/23/2025 1:11 PM SECURITY SYSTEM ADMINISTRATOR Darrin Mccord DO LABORATORY Final Result Performing Organization Address [facility]/ZIP Co de Phone Number [facility] [address] [place] [address], [place] [phone] * (ABNORMAL) CBC W/DIFF AUTOMATED (08/23/2025 1:11 PM SECURITY SYSTEM ADMINISTRATOR) [facility] WBC 7.33 4.5 - 11.0 x10'3/uL 08/23/2025 1:22 PM SECURITY SYSTEM ADMINISTRATOR [facility] RBC 5.15 4.20 - 5.40 x10'6/uL 08/23/2025 1:22 PM [facility] HGB 16.4(H) 12.0 - 16.0 G/DL 08/23/2025 1:22 PM [facility] HCT 49.3(H) 38.0 - 48.0 % 08/23/2025 1:22 PM [facility] MCV 95.7 81.0 - 99.0 FL 08/23/2025 1:22 PM [facility] MCH 31.8(H) 27.0 - 31.0 PG 08/23/2025 1:22 PM [facility] MCHC 33.3 32.0 - 36.0 G/DL 08/23/2025 1:22 PM [facility] RDW 12.5 11.5 - 14.5 % 08/23/2025 1:22 PM [facility] PLT 221 130 - 400 x10'3/uL 08/23/2025 1:22 PM [facility] MPV 11.0 9.3 - 12.2 FL 08/23/2025 1:22 PM [facility] DIFFERENTIAL TYPE AUTOMATED DIFFERENTIAL 08/23/2025 1:22 PM [facility] NEUTROPHILS % 82.6 % 08/23/2025 1:22 PM [facility] LYMPHOCYTES % 12.1 % 08/23/2025 1:22 PM SECURITY SYSTEM ADMINISTRATOR [facility] MONOCYTES % 4.6 % 08/23/2025 1:22 PM SECURITY SYSTEM ADMINISTRATOR [facility] EOSINOPHILS 0.0 % 08/23/2025 1:22 PM SECURITY SYSTEM ADMINISTRATOR [facility] BASOPHILS 0.4 % 08/23/2025 1:22 PM SECURITY SYSTEM ADMINISTRATOR [facility] IMMATURE GRANS % 0.3 % 08/23/20 1:22 PM SECURITY SYSTEM ADMINISTRATOR [facility] ABS. NEUTROPHILS 6.05 1.80 - 7.70 x10'3/uL 08/23/2025 1:22 PM SECURITY SYSTEM ADMINISTRATOR [facility] ABS. LYMPHOCYTES 0.89(L) 1.00 - 4.80 x10'3/uL 08/23/2025 1:22 PM SECURITY SYSTEM ADMINISTRATOR [facility] ABS. MONOCYTES 0.34 0.24 - 0.86 x10'3/uL 08/23/2025 1:22 PM SECURITY SYSTEM ADMINISTRATOR [facility] ABS. EOSINOPHILS 0.00(L) 0.04 - 0.36 x10'3/uL 08/23/2025 1:22 PM SECURITY SYSTEM ADMINISTRATOR [facility] ABS. BASOPHILS 0.03 0.01 - 0.08 x10'3/uL 08/23/2025 1:22 PM SECURITY SYSTEM ADMINISTRATOR [facility] ABS. IMMATURE GRANULOCYTES 0.02 0.00 - 0.49 x10'3/uL 08/23/2025 1:22 PM SECURITY SYSTEM ADMINISTRATOR [facility] BLOOD VENOUS BLOOD SPECIMEN / Unknown 08/23/2025 1:11 PM SECURITY SYSTEM ADMINISTRATOR us Mary Cole PA-C LABORATORY Final Resul t [facility] [address] [place] [address], * (ABNORMAL) BASIC METABOLIC PANEL (08/23/2025 1:11 PM SECURITY SYSTEM ADMINISTRATOR) [facility] GLUCOSE 148(H) 70 - 99 MG/DL 08/23/2025 1:52 PM [facility] BUN 15 7 - 18 MG/DL 08/23/2025 1:52 PM [facility] CREATININE S/P/B 0.95 0.55 - 1.02 MG/DL 08/23/2025 1:52 PM [facility] SODIUM S/P/B 137 136 - 145 MMOL/L 08/23/2025 1:52 PM [facility] POTASSIUM S/P/B 3.9 3.5 - 5.1 MMOL/L 08/23/2025 1:52 PM [facility] CHLORIDE S/P/B 104 97 - 115 MMOL/L 08/23/2025 1:52 PM [facility] CO2 28.5 21 - 32 MMOL/L 08/23/2025 1:52 PM [facility] CALCIUM S/P/B 10.9(H) 8.5 - 10.1 MG/DL 08/23/2025 1:52 PM [facility] ANION GAP 4.5 2 - 10 MMOL/L 08/23/2025 1:52 PM [facility] BUN CREATININE RATIO 15.9 6 - 26 08/23/2025 1:52 PM [facility] GFR ESTIMATE 61(L) >90 ML/MIN/1.7 3 M2 08/23/2025 1:52 PM [facility] Comment: NOTE: eGFR is not calculated for patients <18 years of age or gender unknown. This is an estimated GFR calculation using the new CKD EPI creatinine equation without race and so does not require a correction factor for race. This estimated GFR should not be used for calculating drug doses. BLOOD VENOUS BLOOD SPECIMEN / Unknown 08/23/2025 1:11 PM SECURITY SYSTEM ADMINISTRATOR Mary Cole PA-C LABORATORY Final Resul t [facility] [address] [place] [address], from Last 3 Months Insurance [employer] MEDICARE Care Teams Ferry Operator Relationship Specialty Start Date End Date Hafsa Luna NP [address] [place] [address] PCP - General Nurse Practitioner Family 08/23/25
--- OUTSIDE RECORDS SUMMARY | 2025-09-04 12:27 | XMS_ITS | Encounter Summary ---
Author Organization [facility] Address [address] [place] [address] Care Team Providers Care Arborist Representative Name Role Phone Vipul Weber DO Primary Care Provider [phone] Encounter Details Date Type Department Care Team (Late st Contact Info) Description 09/19/2024 Lab Requisition [facility] - DermPath Lab [address] [facility], [place] [phone] Paige Long DO [address] [facility] [address] DEPT [place] [address] Social History Tobacco Use Types Packs/Day Years Used Date Smoking Tobacco: Never Assessed Comments Unknown Sex and Gender Information Value Date Recorded Sex Assigned at Not on file Legal Sex Female 6:26 PM BACKEND DEVELOPER Gender Identity Not on file Sexual Orientation Not on file documented as of this encounter Plan of Treatment Not on file documented as of this encounter Procedures Procedure Name Priority Date/Time Associated Diagnosis Comments DERMATOPATHOLOGY Routine 09/19/2024 11:1 8 AM BACKEND DEVELOPER documented in this encounter Results * DERMATOPATHOLOGY (09/19/2024 11:18 AM BACKEND DEVELOPER) Case Report Dermatopathology Report Case: [id number] Authorizing Provider: Paige Long DO Collected: 09/19/2024 11:18 AM Ordering Location: [facility] - Received: 09/20/2024 06:02 AM DermPath Lab Pathologist: Lavonne Riggs MD Specimen: Skin, right mid back 4:20 PM BACKEND DEVELOPER DERMATOPATHOLOGY LABORATORY Final Diagnosis Specimen A. SKIN, right mid back: DERMAL SCAR RESIDUAL BASAL CELL CARCINOMA NOT IDENTIFIED (L90.5) 4:20 PM [facility] DERMATOPATHOLOGY LABORATORY at 1619 BACKEND DEVELOPER Clinical History R/O BCC 4:20 PM [facility] DERMATOPATHOLOGY LABORATORY Gross Description Specimen A: Received is one formalin filled container labeled with the patient's name and designated right mid back. The specimen consists of a non-oriented ellipse of skin measuring 80s60t9 mm. The epidermal surface is unremarkable. The margin is inked green. The 12 o'clock and 6 o'clock tips are submitted in cassette 1. The remainder of the ellipse is serially sectioned and submitted in cassette 2-3. Jar 0. 4:20 PM [facility] DERMATOPATHOLOGY LABORATORY Microscopic Description Specimen A. SKIN, right mid back: There are fibroblasts and collagen bundles oriented parallel to the skin surface. There are elongated blood vessels, some of which are oriented perpendicular to the skin surface. No basal cell carcinoma is identified. 4:20 PM [facility] DERMATOPATHOLOGY LABORATORY Disclaimer An external and internal positive and negative controls are appropriate for the histochemical, immunohistochemical and immunofluorescence stain(s) in this case (if any), except where stated explicitly. The performance characteristics of the stain(s) cited in this report were developed and its performance characteristic determined by the Dermatopathology Laboratory at [facility], directed by Dr. Yeimi Gr. These tests need not be, and therefore are not, approved by the [place] Food and Drug Administration. The tests are used for clinical purposes. Billing Codes Specimen Charges Stain Charges 04366 1 4:20 PM [facility] DERMATOPATHOLOGY LABORATORY Embedded Images 4:20 PM [facility] DERMATOPATHOLOGY LABORATORY Pathology/Cytolo gy TISSUE SPECIMEN FROM SKIN / Unknown 09/19/2024 11:18 AM BACKEND DEVELOPER 09/20/2024 6:02 AM [facility] us Paige Long DO LAB - PATHOLOGY/CYTOLOGY ORDERABLES Final Result DERMATOPATHOLOGY LABORATORY [facility] - Department of Dermatology [address], [address] [phone] documented in this encounter Visit Diagnoses Not on filedocumented in this encounter Care Teams Arborist Representative Relationship Specialty Start Date End Date Vipul Weber DO [address] [facility] 1 [place] [address] PCP - General 07/11/22 documented as of this encounter
--- OUTSIDE RECORDS SUMMARY | 2025-09-04 12:27 | XMS_ITS | Encounter Summary ---
Author Organization [facility] Address [address] [facility] [place] [address] Care Team Providers Care Boat Hoist Operator Name Role Phone Vipul Weber DO Primary Care Provider [phone] Encounter Details Date Type Department Care Team (Late st Contact Info) Description 10/03/2024 Lab Requisition [facility] - DermPath Lab [address] [facility] [place] [phone] Paige Long DO [address] [facility] 3 [place] [address] Social History Tobacco Use Types Packs/Day Years Used Date Smoking Tobacco: Never Assessed Comments Unknown Sex and Gender Information Value Date Recorded Sex Assigned at Not on file Legal Sex Female 6:26 PM BROMINATION EQUIPMENT OPERATOR Gender Identity Not on file Sexual Orientation Not on file documented as of this encounter Plan of Treatment Not on file documented as of this encounter Procedures Procedure Name Priority Date/Time Associated Diagnosis Comments DERMATOPATHOLOGY Routine 10/03/2024 8:03 AM BROMINATION EQUIPMENT OPERATOR documented in this encounter Results * DERMATOPATHOLOGY (10/03/2024 8:03 AM BROMINATION EQUIPMENT OPERATOR) Case Report Dermatopathology Report Case: [id number] Authorizing Provider: Paige Long DO Collected: 10/03/2024 08:03 AM Ordering Location: [facility] - Received: 10/03/2024 01:51 PM DermPath Lab Pathologist: Lavonne Riggs MD Specimen: Skin, right inner thigh 4:42 PM BROMINATION EQUIPMENT OPERATOR DERMATOPATHOLOGY LABORATORY Final Diagnosis Specimen A. 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 The specimen consists of a shave biopsy measuring 13x9x1 mm. Jar 0. 4:42 PM [facility] DERMATOPATHOLOGY LABORATORY Microscopic Description Specimen A. SKIN, right inner thigh: The epidermis shows parakeratosis, full thickness disorderly maturation of keratinocytes, mitoses at different levels, and dyskeratotic cells. 4:42 PM [facility] DERMATOPATHOLOGY LABORATORY Disclaimer An external and internal positive and negative controls are appropriate for the histochemical, immunohistochemical and immunofluorescence stain(s) in this case (if any), except where stated explicitly. The performance characteristics of the stain(s) cited in this report were developed and its performance characteristic determined by the Dermatopathology Laboratory at [facility], directed by Dr. Yeimi Gr. These tests need not be, and therefore are not, approved by the [place] Food and Drug Administration. The tests are used for clinical purposes. Billing Codes Specimen Charges Stain Charges 05441 1 4:42 PM [facility] DERMATOPATHOLOGY LABORATORY Embedded Images 4:42 PM [facility] DERMATOPATHOLOGY LABORATORY Pathology/Cytolo gy TISSUE SPECIMEN FROM SKIN / Unknown 10/03/2024 8:03 AM BROMINATION EQUIPMENT OPERATOR 10/03/2024 1:51 PM [facility] us Paige Long DO LAB - PATHOLOGY/CYTOLOGY ORDERABLES Final Result DERMATOPATHOLOGY LABORATORY [facility] - Department of Dermatology [address], [address] [phone] documented in this encounter Visit Diagnoses Not on filedocumented in this encounter Care Teams Boat Hoist Operator Relationship Specialty Start Date End Date Vipul Weber DO [address] [place] [address] PCP - General 07/11/22 documented as of this encounter
--- OUTSIDE RECORDS SUMMARY | 2025-09-04 12:27 | XMS_ITS | Encounter Summary ---
Author Organization [facility] Address [address] [facility] [place] [place] [address] Care Team Providers Care Field Artillery Basic Name Role Phone Vipul Weber DO Primary Care Provider [phone] Encounter Details Date Type Department Care Team (Late st Contact Info) Description 07/21/2024 Lab Requisition [facility] - DermPath Lab [address] [facility], [place] [phone] Paige Long DO [address] [facility] [address] [place] [address] Social History Tobacco Use Types Packs/Day Years Used Date Smoking Tobacco: Never Assessed Comments Unknown Sex and Gender Information Value Date Recorded Sex Assigned at Not on file Legal Sex Female 6:26 PM OPTO MECHANICAL TECHNICIAN Gender Identity Not on file Sexual Orientation Not on file documented as of this encounter Plan of Treatment Not on file documented as of this encounter Procedures Procedure Name Priority Date/Time Associated Diagnosis Comments DERMATOPATHOLOGY Routine 07/21/2024 2:05 PM OPTO MECHANICAL TECHNICIAN documented in this encounter Results * DERMATOPATHOLOGY (07/21/2024 2:05 PM OPTO MECHANICAL TECHNICIAN) Case Report Dermatopathology Report Case: [id number] Authorizing Provider: Paige Long DO Collected: 07/21/2024 02:05 PM Ordering Location: [facility] - Received: 07/22/2024 11:30 AM DermPath Lab Pathologist: Radha Esquivel MD Specimens: A) - Skin, left shoulder B) - Skin, right mid back C) - Skin, left thigh 1:21 PM OPTO MECHANICAL TECHNICIAN DERMATOPATHOLOGY LABORATORY Final Diagnosis Specimen A. 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 SKIN, left thigh: SQUAMOUS CELL CARCINOMA IN SITU (JERONIMO'S DISEASE) (D04.72) 4 1:21 PM [facility] DERMATOPATHOLOGY LABORATORY at [address] OPTO MECHANICAL TECHNICIAN Clinical History A-C: R/O NMSC 1:21 PM [facility] DERMATOPATHOLOGY LABORATORY Gross Description Specimen A: [...] 8x8x1 mm. Jar 0 4 1:21 PM [facility] DERMATOPATHOLOGY LABORATORY Microscopic Description Specimen A. [...] levels, and dyskeratotic cells. 4 1:21 PM [facility] DERMATOPATHOLOGY LABORATORY Disclaimer An external and internal positive and negative controls are appropriate for the histochemical, immunohistochemical and immunofluorescence stain(s) in this case (if any), except where stated explicitly. The performance characteristics of the stain(s) cited in this report were developed and its performance characteristic determined by the Dermatopathology Laboratory at [facility], directed by Dr. Yeimi Gr. These tests need not be, and therefore are not, approved by the [place] Food and Drug Administration. The tests are used for clinical purposes. Billing Codes Specimen Charges Stain Charges 68266 12326 70242 1 1 1 4 1:21 PM OPTO MECHANICAL TECHNICIAN DERMATOPATHOLOGY LABORATORY Embedded Images 4 1:21 PM OPTO MECHANICAL TECHNICIAN DERMATOPATHOLOGY LABORATORY Pathology/Cytology TISSUE SPECIMEN FROM SKIN / Unknown 07/21/2024 2:05 PM OPTO MECHANICAL TECHNICIAN 07/22/2024 11:30 AM OPTO MECHANICAL TECHNICIAN Miscellaneous samples (specimen) TISSUE SPECIMEN FROM SKIN / Unknown 07/21/2024 2:05 PM OPTO MECHANICAL TECHNICIAN 07/22/2024 11:30 AM OPTO MECHANICAL TECHNICIAN Miscellaneous samples (specimen) TISSUE SPECIMEN FROM SKIN / Unknown 07/21/2024 2:05 PM OPTO MECHANICAL TECHNICIAN 07/22/2024 11:30 AM OPTO MECHANICAL TECHNICIAN us Paige Long DO LAB - PATHOLOGY/CYTOLOGY ORDERABLES Final Result DERMATOPATHOLOGY LABORATORY [facility] - Department of Dermatology [facility] [address] [place] [address], [address] [phone] documented in this encounter Visit Diagnoses Not on filedocumented in this encounter Care Teams Field Artillery Basic Relationship Specialty Start Date End Date Vipul Weber DO [address] [place] [address] PCP - General 07/11/22 documented as of this encounter
== END 2025-09-04 11:53 | disposition home or self-care (01) ==
PROVIDERS: PCP Nurse Practitioner Family; Visit Provider Anesthesiology Pain Medicine
DX: M53.3 Sacrococcygeal disorders, not elsewhere classified (principal); M16.0 Bilateral primary osteoarthritis of hip
CPT/HCPCS: 72114; 72202; 73521